=== PATIENT | male | born 1995 | race Caucasian/White ===

== ENCOUNTER 2021-12-09 14:39 | Emergency (ER) | payer OTHER, SELFPAY ==
--- NOTE | 2021-12-09 14:40 | ED.ABDPAIN ---
HPI - Abdominal Pain General Chief Complaint: Abdominal Pain Stated Complaint: Abdominal Pain,Diarrhea,Shortness of Breath Time Seen by Provider: 12/09/21 14:40 Source: patient Mode of arrival: ambulatory Limitations: no limitations History of Present Illness HPI narrative: Mr. Pearson is a 26-year-old male patient presenting to the clinic today with complaints abdominal pain, diarrhea, and shortness of breath x4 days. He reports the pain is in the upper mid abdomen and he is also had some heartburn symptoms for the past 2 days. He reports that his stool has been a mixture of soft and diarrhea. He denies any blood in stool. He denies any nausea or vomiting. He states he gets occasional intermittent shortness of breath when the pain is bad. Does have a cardiac history and is seeing cardiac provider-supposed to be getting echocardiogram done but has not done this yet. Reports history of 2 heart attacks. States his chest and arms feel tingly at times but not currently. Rates the midepigastric pain a 3-4 out of 10. Related Data Allergies Allergy/AdvReac Type Severity Reaction Status Date / Time No Known Allergies Allergy Verified 12/09/21 14:55 Review of Systems Review of Systems: Pertinent positives per HPI. Patient denies any fever, chills, rash, headache, visual changes, dizziness, cough, chest pain, palpitations, nausea, vomiting, constipation, or any urinary issues. PMFSH Comments At the time of my signature, I reviewed and agree with the nursing past medical, surgical, social, and family history. There is no relevant family history pertinent to the patient complaint. Exam Narrative: General: Well-developed, well nourished, in no apparent distress Head: Normocephalic, atraumatic Eyes: Pupils equally round and reactive to light bilaterally, EOM intact, sclera and conjunctive clear, no discharge, lids normal Ears: TMs intact and clear, ear canals clear, no drainage, grossly hearing normal. Nose: Nares patent, no discharge, no inflammation, no sinus tenderness. Mouth: Oral pharynx without lesions or masses, good dentition, MMM. Neck: Supple, trachea midline, no enlargement of anterior or posterior cervical nodes, no thyroid masses or goiter palpable. Cardio: Regular rate and rhythm, s1 and s2 normal, no murmur appreciated. Resp: Clear to auscultation bilaterally, no rhonchi, rales, wheezing or rubs Abdomen: Soft, pliable, mild tenderness to palpation over the mid epigastrium, bowel sounds present all 4 quadrants, no organomegaly, no CVAT tenderness Course Course Emergency Course: Portions of this record may have been created with voice recognition software. Level of Care: Express Care Visit Vital Signs Vital signs: Vital Signs Temperature 36.4 C 12/09/21 14:49 Pulse Rate 98 12/09/21 14:49 Respiratory Rate 18 12/09/21 14:49 Blood Pressure 140/88 12/09/21 14:49 Pulse Oximetry 100 12/09/21 14:49 Oxygen Delivery Room Air 12/09/21 14:49 Temperature 36.4 C 12/09/21 14:49 Pulse Rate 98 12/09/21 14:49 Respiratory Rate 18 12/09/21 14:49 Blood Pressure 140/88 12/09/21 14:49 Pulse Oximetry 100 12/09/21 14:49 Oxygen Delivery Room Air 12/09/21 14:49 Vital signs reviewed MDM - Abdominal Pain MDM Narrative Medical decision making narrative: At the time of visit patient is resting comfortably on the exam table. Maalox 30 mL and viscous lidocaine 15 mils given in the clinic and this upset the patient. 4 mg of Zofran was given for nausea. 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 He already has orders for echocardiogram and blood work that he plans to get done and he will follow-up with his PCP and licensed occupational therapist this week. I will trial him on a prescription of Protonix to see if this helps his symptoms. Red flag symptoms were reviewed with patient he voiced understanding of dischar
[2021-12-09 14:49] VITALS: BP 140/88; PULSE 98; RESP 18; TEMP 36.4; O2SAT 100
--- NOTE | 2021-12-09 15:09 | ECG_ITS ---
Measurements Intervals [place] Rate: 93 P: 78 [place]: 155 QRS: 52 QRSD: 106 T: 68 QT: 342 QTc: 427 Interpretive Statements SINUS RHYTHM MINOR RV CONDUCTION DELAY OTHERWISE NORMAL ECG NO PREVIOUS ECG AVAILABLE FOR COMPARISON Electronically Signed On 12-10-2021 8:00:19 CDT by Osmar Limon M.D.
[2021-12-09] MEDS: LIDOCAINE HCL 2% VISC SOLN 15 ML UDC PO (15:15)
[2021-12-09] MEDS: MAG HYDROX/AL HYDROX/SIMETH 30 ML UDC PO (15:15)
[2021-12-09] MEDS: ONDANSETRON HCL ODT 4 MG TABLET SUBLINGUAL (15:39)
== END 2021-12-09 15:56 | disposition home or self-care (01) ==
PROVIDERS: Emergency Provider Nurse Practitioner Family
DX: R10.13 Epigastric pain (principal); I25.2 Old myocardial infarction
CPT/HCPCS: 93005; 99213; A9270; G0463

== ENCOUNTER 2021-12-12 18:27 | Emergency (ER) | payer OTHER, SELFPAY ==
--- NOTE | ~2021-12-12 | XR_ITS ---
EXAMINATION: XR chest 2V Exam Date/Time: 12/12/2021 18:50 CDT HISTORY: short of breath Comparison: None available. RESULT: Lines, tubes, and devices: None. Lungs and pleura: Clear. Cardiomediastinal silhouette: Normal. Other: No acute osseous or upper abdominal finding. IMPRESSION: No acute cardiopulmonary process. Reviewed, dictated and finalized at location K.
[2021-12-12 18:37] VITALS: BP 134/88; PULSE 99; RESP 18; TEMP 36.4; O2SAT 100
--- NOTE | 2021-12-12 18:42 | ED.URI ---
HPI - URI/Sore Throat General Chief Complaint: Shortness of Breath/Dyspnea Stated Complaint: sob Time Seen by Provider: 12/12/21 18:50 Source: patient Mode of arrival: ambulatory Limitations: no limitations History of Present Illness HPI Narrative: 26-year-old male presented for complaint of shortness of breath. He endorses palpitations and shortness of breath with walking/activity since yesterday. He was seen at the [facility] on 12/09 for epigastric abdominal pain, given GI cocktail and Zofran, and started prescription PPI. He endorses worsening abdominal pain yesterday and right hand shaking last night. Currently denies abdominal pain, nausea, vomiting, diarrhea, chest pain, wheezing or cough. LBM last night, normal. Patient has history of tourette's, and his mother had SD age 30. 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 He denies personal cardiac history, however he states about one year ago he may have had 'a stroke or heart attack' but he did not seek ER evaluation due to fear of doctors. Related Data Home Medications Medication Instructions Recorded Confirmed No Home Medications 12/12/21 12/12/21 Allergies Allergy/AdvReac Type Severity Reaction Status Date / Time No Known Allergies Allergy Verified 12/12/21 18:47 Review of Systems Review of Systems: CONSTITUTIONAL: Denies body aches, fever, chills, or sweats. EYES: Denies visual changes, redness, or discharge. ENT: Denies rhinorrhea, congestion, sore throat, or otalgia. CARDIOVASCULAR:per HPI. RESPIRATORY: per HPI GASTROINTESTINAL: Denies abdominal pain, nausea, vomiting, or diarrhea. GENITOURINARY: Denies dysuria or hematuria. SKIN: Denies rash or wounds. MUSCULOSKELETAL: Denies back pain, joint pain, or myalgia. NEUROLOGIC: Denies headache, numbness, tingling, or weakness. All systems reviewed & are unremarkable except as noted in HPI and below PMFSH Comments At time of signature, I have reviewed and agree with nursing past medical, surgical, social and family history unless otherwise noted. Please see nursing chart for further information. There is no relevant family history pertinent to the presenting complaint Exam Narrative: GENERAL: Well-appearing EYES: EOMI. No redness or drainage. Conjunctivae normal. ENT: Mucous membranes pink and moist. No rhinorrhea. TMs normal bilaterally. Throat normal. Uvula midline. CHEST: No respiratory distress. Lungs clear and diminished throughout HEART: Regular rate and rhythm. No murmur appreciated. ABDOMEN: Soft, nontender, nondistended, normal active bowel sounds. EXTREMITIES: Normal range of motion. No edema. SKIN: Warm, dry, no rash. Capillary refill normal. Normal skin turgor. NEURO: Alert and oriented x3. Gait steady. PSYCH: appears anxious Course Course Emergency Course: Patient is aware of diagnosis, understands and agrees to treatment plan. Anticipatory guidance given. Patient agrees to follow-up as directed and is aware of reasons to seek care at the emergency department. Portions of this record may have been created with voice recognition software Level of Care: Express Care Visit Vital Signs Vital signs: Vital Signs Temperature 97.6 F 12/12/21 18:37 Pulse Rate 99 12/12/21 18:37 Respiratory Rate 18 12/12/21 18:37 Blood Pressure 134/88 12/12/21 18:37 Pulse Oximetry 100 12/12/21 18:37 Oxygen Delivery Room Air 12/12/21 18:37 Temperature 97.6 F 12/12/21 18:37 Pulse Rate 99 12/12/21 18:37 Respiratory Rate 18 12/12/21 18:37 Blood Pressure 134/88 12/12/21 18:37 Pulse Oximetry 100 12/12/21 18:37 Oxygen Delivery Room Air 12/12/21 18:37 MDM - URI/Sore Throat MDM Narrative Medical decision making narrative: Result of chest x-ray reviewed with patient. He is in stable condition, no respiratory distress. O2 sat 100% on room air. We discussed multiple etiologies including emergencies that require imm
== END 2021-12-12 19:48 | disposition home or self-care (01) ==
PROVIDERS: Emergency Provider Nurse Practitioner Family
DX: R06.02 Shortness of breath (principal)
CPT/HCPCS: 71046; 99213; G0463

== ENCOUNTER 2021-12-29 16:05 | Emergency (ER) | payer OTHER, SELFPAY ==
[2021-12-29 16:13] VITALS: BP 142/92; PULSE 124; RESP 18; TEMP 36.6; O2SAT 100
--- NOTE | 2021-12-29 16:22 | ED.URI ---
HPI - URI/Sore Throat General Chief Complaint: Upper Respiratory Infection Stated Complaint: Nausea,Body Chills Source: patient and RN notes reviewed Mode of arrival: ambulatory Limitations: no limitations History of Present Illness HPI Narrative: 26 y/o male presents for c/o sinus pressure, nausea, body aches, cold sweats, reports fever 103, and neck pain. Symptoms worsened since yesterday. Patient states that his neck pain is chronic, but more achy today. Denies radiating pain to arms or decreased ROM to neck. Patient has attempted home treatment with ibuprofen and Benadryl. Children recently tested positive for RSV. Denies n/v/d, sob or wheezing. Patient currently smokes a 1/2 pack of cigarettes per day, but has been working on cutting down. MD elicited complaint: cough Related Data Allergies Allergy/AdvReac Type Severity Reaction Status Date / Time pantoprazole AdvReac Mild Gastrointestinal Verified 12/29/21 16:26 Upset Review of Systems Review of Systems: CONSTITUTIONAL: Endorses malaise, chills, sweats, fever t-max 103 EYES: Denies visual changes, or discharge ENT: Reports congestion, frontal and maxillary sinus pain CARDIOVASCULAR: Denies chest pain, palpitations, edema RESPIRATORY: Reports post nasal drainage. Denies dyspnea GASTROINTESTINAL: Denies abdominal pain. Reports nausea but no vomiting MUSCULOSKELETAL: Endorses myalgia, neck pain Exam Narrative: GENERAL: Ill-appearing, nontoxic HEAD: Normocephalic EYES: PERRLA, conjunctivae clear ENT: Mucous membranes moist. TM pearly singletary with light reflex bilaterally; no tragal tenderness. Oropharynx erythematous without lesions or exudate, no drooling, no hoarseness, no trismus, uvula midline. NECK: Supple. No lymphadenopathy, no VPT or nuchal rigidity CHEST: Clear to auscultation, breath sounds equal. No wheezing, rhonchi, rales, or stridor. HEART: Tachycardic and Regular No murmur heard. SKIN: Warm, dry, no rash. NEURO: Alert and oriented x3. Course Course Emergency Course: Patient is aware of diagnosis, understands and agrees to treatment plan. Anticipatory guidance given. Patient agrees to follow-up as directed and is aware of reasons to seek care at the emergency department. Portions of this record may have been created with voice recognition software Level of Care: Express Care Visit Vital Signs Vital signs: Vital Signs Oxygen Delivery Room Air 12/29/21 16:08 Temperature 97.8 F 12/29/21 16:13 Pulse Rate 124 H 12/29/21 16:13 Respiratory Rate 18 12/29/21 16:13 Blood Pressure 142/92 H 12/29/21 16:13 Pulse Oximetry 100 12/29/21 16:13 Oxygen Delivery Room Air 12/29/21 16:13 reviewed MDM - URI/Sore Throat MDM Narrative Medical decision making narrative: Negative COVID and Flu results discussed with patient. Advised supportive measures and signs and symptoms to report to the ED. Patient is well-appearing and appropriate for outpatient treatment and follow up. 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 Differential Diagnosis Differential diagnosis: Likely upper respiratory infection, sinusitis and viral infection Lab Data Labs: Lab Results 12/29/21 Range/Units 16:45 POC SARS CoV-2 Ag Negative (Negative) Influenza A Screen Negative Reference Range: Negative Influenza B Screen Negative Reference Range: Negative Discharge Plan Discharge Clinical Impression: Upper respiratory infection Patient Disposition: Home, Self-Care Condition: Stable Instructions: Rhinosinusitis (ED) Additional Instructions: COVID and flu negative. You may repeat COVID test at home in 1-2 days. Continue with standard precautions. Recommend Flonase spray and Zyrtec (or Claritin/Claudia)
== END 2021-12-29 17:03 | disposition home or self-care (01) ==
PROVIDERS: Emergency Provider Nurse Practitioner Family
DX: J06.9 Acute upper respiratory infection, unspecified (principal); Z20.822 Contact with and (suspected) exposure to COVID-19
CPT/HCPCS: 87426; 87804; 99213; C9803; G0463

== ENCOUNTER 2022-01-05 15:44 | Outpatient (CLI) | payer OTHER, SELFPAY ==
[2022-01-05 16:03] LABS: Basophils Percent Auto 0.4 % (0.2-1.2); Eosinophils Absolute Auto 0.1 K/mm3 (0-0.3); Eosinophils Percent Auto 0.9 % (0-4.4); Hematocrit 42.5 % (42.0-52.0); Hemoglobin 14.4 g/dL (14.0-18.0); Immature Granulocyte Absolute 0.02 K/mm3 (0.00-0.031); Immature Granulocyte Percent A 0.3 % (0-0.5); Lymphocytes Absolute Auto 2.75 K/mm3 (0.9-3.2); Lymphocytes Percent Auto 35.6 % (18.3-44.2); Mean Corpuscular HGB Conc 33.9 g/dl (32-36); Mean Corpuscular Volume 88.5 fl (80-100); Mean Platelet Volume 9.3 fl (7.4-10.4); Monocytes Absolute Auto 0.6 K/mm3 (0.1-0.6); Monocytes Percent Auto 7.5 % (2.6-8.5); Neutrophils Absolute Auto 4.3 K/mm3 (1.3-6.7); Neutrophils Percent Auto 55.3 % (45.5-73.1); Platelet Count Result 291 k/mm3 (150-375); Red Cell Distribution Width 13.8 % (11.5-14.5); White Blood Count 7.7 K/mm3 (4.5-10.0)
[2022-01-05 17:03] LABS: Alanine Aminotransferase 57 U/L (6-50); Albumin Level 4.5 g/dL (3.5-5.1); Alkaline Phosphatase 105 U/L (38-126); Anion Gap 9 mmol/L (8-16); Aspartate Amino Transferase 36 U/L (17-59); Bilirubin,Total 0.4 mg/dL (0.2-1.3); Blood Urea Nitrogen 19 mg/dL (9-20); Calcium 8.8 mg/dL (8.4-10.2); Carbon Dioxide 26 mmol/L (22-30); Chloride 103 mmol/L (98-107); Estimated Glomerular Filt Rate > 60; Glucose 105 mg/dL (65-110); Sodium 138 mmol/L (137-145)
[2022-01-05 17:29] LABS: Free T4 Free Thyroxine 0.68 ng/mL (0.78-2.19)
== END 2022-01-05 15:45 | disposition home or self-care (01) ==
PROVIDERS: Visit Provider Specialist
DX: R00.2 Palpitations (principal); I10 Essential (primary) hypertension
CPT/HCPCS: 36415; 80053; 84439; 84443; 85025

== ENCOUNTER 2022-01-06 07:28 | Outpatient (CLI) | payer OTHER, SELFPAY ==
--- NOTE | 2022-01-06 | ECHO_ITS ---
Patient Info Name: Jasson Pearson Age: 26 years : 1995 Gender: Male Ht: 69 in Wt: 180 lbs BSA: 2.01 m2 HR: 84 bpm BP: 139 / 87 mmHg Heart Rhythm: Sinus Rhythm Technical Quality: Good Exam Date: 01/06/2022 8:05 AM Exam Location: [facility] Patient Status: Outpatient Admit Date: 01/06/2022 Staff Ordering Physician: Osmar Limon MD Electronic Gluer: Rayne Faustin RDCS Attending Provider: Osmar Limon MD Referring Physician: Braxton BROOKS; Exam Type: CA echo doppler color flow Study Info Indications R55 - Syncope and collapse R00.2 - Palpitations Complete two-dimensional, color flow and Doppler transthoracic echocardiogram is performed. Summary 1. Complete two-dimensional, color flow and Doppler transthoracic echocardiogram is performed. 2. Unremarkable 2D and Doppler echocardiogram. Left Ventricular Outflow Tract Name Value Normal LVOT 2D LVOT Diameter 2.0 cm LVOT Doppler LVOT Peak Gradient 4 mmHg LVOT Mean Gradient 3 mmHg LVOT VTI 22 cm LVOT VTI/AV VTI Ratio 1.0 LVOT Stroke Volume 69 ml LVOT CO 5.8 l/min LVOT CI 2.9 l/min/m2 Pulmonic Valve Name Value Normal RVOT Doppler RVOT Peak Gradient 2 mmHg PV Doppler PV Peak Gradient 4 mmHg Tricuspid Valve Name Value Normal TV Regurgitation Doppler TR Peak Velocity 192 cm/s TR Peak Gradient 15 mmHg Estimated PAP/RSVP RA Pressure 10 mmHg <=5 PA Systolic Pressure 25 mmHg <36 RV Systolic Pressure 25 mmHg <36 Aorta Name Value Normal Ascending Aorta Ao Root Diameter (MM) 2.9 cm Ao Root Diam Index (MM) 1.5 cm/m2 Aortic Valve Name Value Normal AV Doppler
== END 2022-01-06 07:29 | disposition home or self-care (01) ==
LOC: ANHCARD 07:30
PROVIDERS: Visit Provider Specialist
DX: R00.2 Palpitations (principal)
CPT/HCPCS: 93306

== ENCOUNTER 2022-01-19 22:06 | Emergency (ER) | payer BC, OTHER, SELFPAY ==
[2022-01-19 22:16] VITALS: BP 149/85; PULSE 101; RESP 20; TEMP 36.6; O2SAT 100
--- NOTE | 2022-01-19 23:53 | ED.EYEPROB ---
HPI - Eye Problem General Chief complaint: Eye Problems Stated complaint: bilateral eye pain Time Seen by Provider: 01/19/22 23:45 History of Present Illness HPI Narrative: Patient is a 26-year-old male here for evaluation of bilateral eye irritation and redness for the past 2 hours. Patient states that he was getting ready for bed when he noticed that his left eye was itchy and irritated, followed shortly by the right. Notes that his cat was on his face prior to symptom onset. No new medications. Patient took Benadryl prior to arrival with improvement of his symptoms although his right eye is still red, and notes a burning sensation under his eye. Also notes blurry vision bilaterally. He does not wear contact lenses or glasses. No pain with eye movement, fevers or chills, systemic symptoms. No involvement of mouth or nose. Related Data Allergies Allergy/AdvReac Type Severity Reaction Status Date / Time pantoprazole AdvReac Mild Gastrointestinal Verified 12/29/21 16:26 Upset Review of Systems Review of Systems: Gen: Denies fevers or chills Eyes: Reports bilateral eye irritation and redness. ENT: Denies congestion Respiratory: Denies shortness of breath or cough CV: Denies chest pain or palpitations GI: Denies abdominal pain nausea, emesis or diarrhea : denies burning, urgency, frequency or hematuria Musculoskeletal: Denies back pain or muscle pain Neuro: Denies numbness, tingling, weakness or focal weakness Skin: Denies rash Except as documented, all other systems reviewed and negative Exam Narrative: APPEARANCE: Well appearing, no pain in distress, well-nourished. Head: Normocephalic and atraumatic. EYES: Fluorescein exam reveals no area of uptake. Bobby sign negative. Full range of motion eyes without pain. No obvious swelling to eye. NOSE: No nasal drainage EARS: External ear normal in appearance THROAT: Oropharynx is clear. Mucous membranes are moist. NECK: Supple. No adenopathy, no masses. RESPIRATORY: Airway patent, respirations nonlabored. Clear to auscultation bilaterally, no rales, rhonchi, wheezing. CARDIOVASCULAR: Regular rate and rhythm without murmurs, rubs, or gallops. ABDOMINAL: Normoactive bowel sounds. Soft, nontender, nondistended. No rebound tenderness or guarding. MUSCULOSKELETAL: Extremities are warm and well-perfused. Moves all extremities well. No edema. NEURO: Normal speech. No focal neurologic deficits. SKIN: Small area of redness under left eye; non-tender to palpation; Nikolsky sign negative PSYCHIATRIC: Normal affect/mood. Course Vital Signs Vital signs: Vital Signs Temperature 97.9 F 01/19/22 22:16 Pulse Rate 101 H 01/19/22 22:16 Respiratory Rate 20 01/19/22 22:16 Blood Pressure 149/85 H 01/19/22 22:16 Pulse Oximetry 100 01/19/22 22:16 Oxygen Delivery Room Air 01/19/22 22:16 Temperature 97.9 F 01/19/22 22:16 Pulse Rate 101 H 01/19/22 22:16 Respiratory Rate 20 01/19/22 22:16 Blood Pressure 149/85 H 01/19/22 22:16 Pulse Oximetry 100 01/19/22 22:16 Oxygen Delivery Room Air 01/19/22 22:16 MDM - Eye Problem MDM Narrative Medical decision making narrative: 26 year old male here for evaluation of bilateral eye irritation and redness after his cat sat on his face. He took benadryl prior to arrival with improvement of his symptoms; and he was given pepcid and prednisone in the ED with near resolution. His eye exam is unremarkable; anh pen reads pressures of 10 on the R and 11 on the Left. Fluorescein stain shows no abrasion or globe rupture. He has no new medications, no systemic symptoms, and has a negative nikolsky sign; so doubt SJS. Bilateral nature of symptoms and full range of motion without pain makes orbital cellulitis unlikely. His visual acuity is 20/40 on the L, 20/30 on the R, 20/25 bilaterally. Likely allergic conjunctivitis to his cat; patient will be sent home with prednisone and to follow up with optho. He was given strict retur
[2022-01-20] MEDS: FAMOTIDINE 20 MG TABLET PO (00:06)
[2022-01-20] MEDS: predniSONE 20 MG TABLET 40 MG PO (00:06)
[2022-01-20] MEDS: FLUORESCEIN SOD 1 MG/STRIP EACH EYE (00:07)
[2022-01-20] MEDS: TETRACAINE HCL 0.5% OPHTH SOLN 4 ML BTL 1 DROP EACH EYE (00:08)
== END 2022-01-20 01:05 | disposition home or self-care (01) ==
PROVIDERS: Emergency Provider Emergency Medicine
DX: H10.13 Acute atopic conjunctivitis, bilateral (principal)
CPT/HCPCS: 99283; A9270; J7512

== ENCOUNTER 2022-02-15 23:04 | Emergency (ER) | payer BC, MEDICAID, SELFPAY ==
--- NOTE | ~2022-02-15 | CT_ITS ---
EXAMINATION: CT brain wo con DATE: 02/16/2022 00:24 INDICATION: Confusion. Right arm numbness. TECHNIQUE: Computed tomography (CT) of the head was performed without intravenous contrast. The mA wa s adjusted according to patient size. Iterative reconstruction technique was employed. The dose-lengt h product was 605.33 mGy-cm. COMPARISON: None FINDINGS: There is no intracranial hemorrhage, acute infarction, or abnormal intracranial mass lesion . The ventricles are normal in size. The paranasal sinuses are clear. The mastoid air cells are honey l. IMPRESSION: 1. Normal brain. Reviewed, dictated and finalized at location A. ER LOADER IMPRESSION: 1. Normal brain.
--- NOTE | ~2022-02-15 | CT_ITS ---
EXAMINATION: CT cervical spine wo con DATE: 02/16/2022 00:25 INDICATION: Right arm numbness TECHNIQUE: Computed tomography (CT) of the cervical spine was performed without intravenous contrast. The dose-length product (DLP) was 476.33 mGy-cm. Automated exposure control and iterative reconstruc tion technique were employed. COMPARISON: None FINDINGS: No fracture, dislocation, or subluxation. The vertebral body heights, alignment, and interv ertebral disc spaces are normal. The paravertebral soft tissues are unremarkable. The odontoid is int act. IMPRESSION: 1. No acute osseous abnormality. Reviewed, dictated and finalized at location A. TECHNICIAN
--- NOTE | 2022-02-15 23:10 | ECG_ITS ---
Measurements Intervals [place] Rate: 103 P: 77 NE: 143 QRS: 47 QRSD: 98 T: 56 QT: 327 QTc: 428 Interpretive Statements SINUS TACHYCARDIA ABNORMAL RHYTHM ECG COMPARED TO ECG 12/09/2021 15:05:28 SINUS TACHYCARDIA NOW PRESENT Electronically Signed On 02-16-2022 11:43:33 WEATHERIZATION FIELD TECHNICIAN by Valerie Ghosh M.D.
[2022-02-15 23:15] VITALS: BP 159/101; PULSE 108; RESP 20; TEMP 36.8; O2SAT 100
[2022-02-15 23:16] VITALS: BP 159/101; PULSE 108; RESP 13; O2SAT 100
[2022-02-15 23:28] LABS: Basophils Percent Auto 0.4 % (0.2-1.2); Eosinophils Absolute Auto 0.1 K/mm3 (0-0.3); Eosinophils Percent Auto 1.5 % (0-4.4); Hemoglobin 14.8 g/dL (14.0-18.0); Immature Granulocyte Absolute 0.01 K/mm3 (0.00-0.031); Immature Granulocyte Percent A 0.1 % (0-0.5); Lymphocytes Absolute Auto 2.96 K/mm3 (0.9-3.2); Mean Corpuscular HGB Conc 34.4 g/dl (32-36); Mean Corpuscular Hemoglobin 30.7 pg (26-34); Mean Corpuscular Volume 89.2 fl (80-100); Mean Platelet Volume 9.6 fl (7.4-10.4); Monocytes Absolute Auto 0.7 K/mm3 (0.1-0.6); Monocytes Percent Auto 10.8 % (2.6-8.5); Neutrophils Percent Auto 44.2 % (45.5-73.1); Platelet Count Result 268 k/mm3 (150-375); Red Blood Count 4.82 M/mm3 (4.6-6.20); Red Cell Distribution Width 13.5 % (11.5-14.5); White Blood Count 6.9 K/mm3 (4.5-10.0)
[2022-02-15 23:29] VITALS: PULSE 107
[2022-02-15 23:32] VITALS: BP 157/75; PULSE 107; RESP 16; O2SAT 100
[2022-02-15 23:47] VITALS: BP 125/96; PULSE 110; RESP 18; O2SAT 100
[2022-02-15 23:50] LABS: Alanine Aminotransferase 50 U/L (6-50); Albumin Level 4.8 g/dL (3.5-5.1); Alkaline Phosphatase 98 U/L (38-126); Anion Gap 7 mmol/L (8-16); Aspartate Amino Transferase 39 U/L (17-59); Bilirubin,Total 0.5 mg/dL (0.2-1.3); Blood Urea Nitrogen 28 mg/dL (9-20); Carbon Dioxide 28 mmol/L (22-30); Chloride 105 mmol/L (98-107); Estimated CRCL calculation 89 ml/min; Estimated Glomerular Filt Rate > 60; Glucose 88 mg/dL (65-110); Potassium 3.3 mmol/L (3.4-5.0); Sodium 140 mmol/L (137-145)
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
[2022-02-16] MEDS: SODIUM CHLORIDE 0.9% IV 1,000 ML 999 ML IV CONT (00:04)
[2022-02-16 00:31] VITALS: BP 123/88; PULSE 96; RESP 17; O2SAT 100
[2022-02-16 00:32] LABS: Ethanol < 10 mg/dL (<10)
--- NOTE | 2022-02-16 00:33 | PC.NURSE ---
Pt ambulated to bathroom to try and give urine sample. Pt unable to void at this time. Instructed pt to use his call light when he feels like he can go. Pt verbalized understanding.
[2022-02-16 00:46] VITALS: BP 135/85; PULSE 91; RESP 17; O2SAT 100
[2022-02-16 01:01] VITALS: BP 129/82; PULSE 92; RESP 14; O2SAT 100
[2022-02-16 01:04] LABS: Add Urine Microscopic? NO; Appearance Urine Clear (Clear); Bilirubin Urine Negative (Negative); Blood Urine Negative (Negative); Color Urine Light Yellow (Yellow); Glucose Urine UA Negative (Negative); Ketones Urine Negative (Negative); Leukocyte Esterase Ur Negative LEU/UL (Negative); Nitrate Urine Negative (Negative); Protein Urine Negative (Negative); Specific Grav Ur >= 1.030 (1.001-1.035); Urobilinogen Urine 0.2 mg/dL (<2.0); pH Urine 5.5 (5.0-9.0)
[2022-02-16 01:07] LABS: Mucus Urine Rare /lpf; RBC Urine 0-2 /hpf (0-2); Squamous Epithelial Cell Urine Rare /hpf (Few); WBC Urine 0-3 /hpf
[2022-02-16] MEDS: POTASSIUM CHLORIDE 20 MEQ PACKET (FOR LIQUID) 40 MEQ PO (01:14)
[2022-02-16 01:17] VITALS: BP 134/91; PULSE 102; RESP 21; O2SAT 100
[2022-02-16 01:20] LABS: Barbiturate Screen Urine Negative (Negative); Benzodiazepines Screen Urine Negative (Negative)
[2022-02-16 01:30] LABS: Cannabinoid Screen Urine Negative (Negative); Cocaine Screen Urine Negative (Negative); Methadone Screen Urine Negative (Negative); Opiate Screen Urine Negative (Negative); Phencyclidine Screen Urine Negative (Negative)
[2022-02-16 01:46] VITALS: BP 132/89; PULSE 89; RESP 20; O2SAT 100
[2022-02-16 02:20] LABS: Amphetamine Screen Urine Positive (Negative)
== END 2022-02-16 02:15 | disposition home or self-care (01) ==
PROVIDERS: Preventive Medicine Aerospace Medicine; Emergency Provider Nurse Practitioner Family
DX: M54.12 Radiculopathy, cervical region (principal); R42 Dizziness and giddiness; T37.5X5A Adverse effect of antiviral drugs, initial encounter; R00.0 Tachycardia, unspecified
CPT/HCPCS: 36415; 70450; 72125; 80053; 80307; 81003; 85025; 93005; 96360; 99284; A9270; J7030

== ENCOUNTER 2022-03-30 16:00 | Emergency (ER) | payer BC, MEDICAID, SELFPAY ==
--- NOTE | 2022-03-30 16:06 | ED.URI ---
HPI - URI/Sore Throat General Chief Complaint: Upper Respiratory Infection Stated Complaint: runny nose,chills Time Seen by Provider: 03/30/22 16:09 Source: patient, RN notes reviewed and old records reviewed Mode of arrival: ambulatory Limitations: no limitations History of Present Illness HPI Narrative: 27-year-old male presents to [facility] with complaints of not feeling well yesterday. Patient states at 10:00 a.m. he started feeling nauseous, dizzy, laid down and take a nap. Woke up this morning still not feeling great with a right nose. Reports that his kids are home with a virus denies any fevers. Reports hot flashes Related Data Home Medications Medication Instructions Recorded Confirmed No Home Medications 03/30/22 03/30/22 Allergies Allergy/AdvReac Type Severity Reaction Status Date / Time pantoprazole AdvReac Mild Gastrointestinal Verified 12/29/21 16:26 Upset Review of Systems Review of Systems: All systems reviewed & are unremarkable except as noted in HPI and below Constitutional: Constitutional: Reports as per HPI, Reports chills and Reports fatigue Eyes: Eyes: Reports no additional eye complaints ENT: Reports system reviewed and no additional complaints, except as documented Cardiovascular: Cardiovascular: Reports no additional cardiovascular complaints, Denies chest pain and Denies dyspnea Respiratory: Respiratory: Reports no additional respiratory complaints, Denies chest congestion, Denies cough and Denies dyspnea Gastrointestinal: Gastrointestinal: Reports as per HPI, Denies abdominal pain, Denies nausea and Denies vomiting Musculoskeletal: Musculoskeletal: Reports no additional musculoskeletal complaints Integumentary/Breasts: Skin/Breast: Reports system reviewed and no additional complaints, except as docu Neurologic: Reports system reviewed and no additional complaints, except as documented Psychiatric: Psychiatric: Reports no additional psychiatric complaints Allergic/Immunologic: Allergic/Immunologic: Reports no additional allergic/immunologic complaints PMFSH Comments At the time of my signature, I reviewed and agree with the nursing past medical, surgical, social, and family history. There is no relevant family history pertinent to the patient complaint. Exam Const: General: cooperative, healthy appearing, comfortable, no acute distress, well developed, alert and well nourished Nutritional Appearance: well nourished Orientation/consciousness: patient oriented x3 Limitations: no limitations HENMT: Head: normal to inspection Ears: hearing grossly normal bilaterally and external ears normal Face/Nose/Sinus: Normal external nose present, Normal nares present, Normal nasal mucous membranes and turbinates present and normal facial exam Face and sinus: normal facial exam Mouth: Yes Normal oral and palatal mucosa present, Yes lip normal and Yes moist mucous membranes Throat: posterior oropharynx normal and uvula midline Eyes: General: appearance normal, both eyes and all related structures Alignment and Position: alignment normal Periorbital: periorbital findings normal Conjunctivae: conjunctivae normal Pupils: Equal, round and reactive pupils present EOM: EOMs intact bilaterally Neck: Neck: normal visual inspection, full ROM, no lymphadenopathy and no meningeal signs Chest: Chest palpation & inspection: normal inspection of the chest Resp: Effort & Inspection: normal respiratory effort and able to speak in complete sentences Auscultation: clear to auscultation bilaterally, no crackles, no rales, no rhonchi and no wheezes Cardio: Rate: regular rate Rhythm: regular rhythm GI: GI Palp: Yes Soft to palpation and No Tenderness to palpation present (GI) Back/Spine/Pelvis: Cervical Spine: cervical ROM normal Thoracic/Lumbar Spine: No thoracic spinal tenderness Skin: General skin exam: normal color and no rashes or lesions noted Lesions: no lesions Rashes: no r
[2022-03-30 16:10] VITALS: BP 134/85; PULSE 102; RESP 20; TEMP 36.2; O2SAT 100
== END 2022-03-30 16:44 | disposition home or self-care (01) ==
PROVIDERS: Emergency Provider Nurse Practitioner
DX: B34.9 Viral infection, unspecified (principal); K21.9 Gastro-esophageal reflux disease without esophagitis
CPT/HCPCS: 87081; 87804; 87880; 99213; G0463

== ENCOUNTER 2022-04-11 18:07 | Emergency (ER) | payer BC, MEDICAID, SELFPAY ==
[2022-04-11 18:12] VITALS: BP 139/86; PULSE 102; RESP 16; TEMP 36.4; O2SAT 100
--- NOTE | 2022-04-11 18:13 | ED.URI ---
HPI - URI/Sore Throat General Chief Complaint: Upper Respiratory Infection Stated Complaint: Body Aches,Shortness of Breath,Congestion Time Seen by Provider: 04/11/22 18:13 Source: patient, RN notes reviewed and old records reviewed Mode of arrival: ambulatory Limitations: no limitations History of Present Illness HPI Narrative: 27-year-old male presents to the [facility] with complaints of body aches, congestion for the last 2-3 days. has been exposed to COVID Lost taste and smell 2 days ago. No treatment prior to arrival denies chest pain/ abdominal pain. Has not taken a temperature Related Data Home Medications Medication Instructions Recorded Confirmed No Home Medications 03/30/22 04/11/22 Allergies Allergy/AdvReac Type Severity Reaction Status Date / Time pantoprazole AdvReac Mild Gastrointestinal Verified 12/29/21 16:26 Upset Review of Systems Review of Systems: All systems reviewed & are unremarkable except as noted in HPI and below Constitutional: Constitutional: Reports no additional constitutional complaints Eyes: Eyes: Reports no additional eye complaints ENT: Reports as per HPI Cardiovascular: Cardiovascular: Reports no additional cardiovascular complaints, Denies chest pain and Denies dyspnea Respiratory: Respiratory: Reports no additional respiratory complaints, Denies chest congestion, Denies cough and Denies dyspnea Gastrointestinal: Gastrointestinal: Reports no additional gastrointestinal complaints, Denies abdominal pain, Denies nausea and Denies vomiting Musculoskeletal: Musculoskeletal: Reports no additional musculoskeletal complaints Integumentary/Breasts: Skin/Breast: Reports system reviewed and no additional complaints, except as docu Neurologic: Reports system reviewed and no additional complaints, except as documented Psychiatric: Psychiatric: Reports no additional psychiatric complaints Allergic/Immunologic: Allergic/Immunologic: Reports no additional allergic/immunologic complaints PMFSH Comments At the time of my signature, I reviewed and agree with the nursing past medical, surgical, social, and family history. There is no relevant family history pertinent to the patient complaint. Exam Const: General: cooperative, comfortable, no acute distress, well developed, alert, ill appearing acutely (mild) and well nourished Nutritional Appearance: well nourished Orientation/consciousness: patient oriented x3 Limitations: no limitations HENMT: Head: normal to inspection Ears: hearing grossly normal bilaterally and external ears normal Face/Nose/Sinus: Normal external nose present, Normal nares present, Normal nasal mucous membranes and turbinates present and normal facial exam Face and sinus: normal facial exam Mouth: Yes Normal oral and palatal mucosa present, Yes lip normal and Yes moist mucous membranes Throat: posterior oropharynx normal and uvula midline Eyes: General: appearance normal, both eyes and all related structures Alignment and Position: alignment normal Periorbital: periorbital findings normal Conjunctivae: conjunctivae normal Pupils: Equal, round and reactive pupils present EOM: EOMs intact bilaterally Neck: Neck: normal visual inspection, full ROM, no lymphadenopathy and no meningeal signs Chest: Chest palpation & inspection: normal inspection of the chest Resp: Effort & Inspection: normal respiratory effort and able to speak in complete sentences Auscultation: clear to auscultation bilaterally, no crackles, no rales, no rhonchi and no wheezes Cardio: Rate: regular rate Rhythm: regular rhythm Back/Spine/Pelvis: Cervical Spine: cervical ROM normal Thoracic/Lumbar Spine: No thoracic spinal tenderness Skin: General skin exam: normal color and no rashes or lesions noted Lesions: no lesions Rashes: no rashes Wounds: no wounds Neuro: General: patient oriented x3, gait normal, tone normal, moves all extremities and no meningeal signs Cranial ner
== END 2022-04-11 18:40 | disposition home or self-care (01) ==
PROVIDERS: Emergency Provider Nurse Practitioner
DX: U07.1 COVID-19 (principal)
CPT/HCPCS: 87081; 87426; 87804; 87880; 99213; C9803; G0463

== ENCOUNTER 2023-04-12 15:49 | Emergency (ER) | payer OTHER, SELFPAY ==
--- NOTE | ~2023-04-12 | XR_ITS ---
EXAMINATION: XR hand RT min 3V INDICATION: Right hand pain TECHNIQUE: Three views of the right hand are obtained. COMPARISON: 07/24/2017 FINDINGS: No fracture, dislocation, or subluxation. The bones, soft tissues, and joint spaces are nor mal. IMPRESSION: 1. No acute osseous abnormality. Reviewed, dictated and finalized at location L. [employer]
--- NOTE | 2023-04-12 16:02 | ED.UPPEXIN ---
HPI - Extremity Injury (Upper) General Chief Complaint: Extremity Injury, Upper Stated Complaint: rt hand injury Time Seen by Provider: 04/12/23 16:28 Source: patient, RN notes reviewed and old records reviewed Mode of arrival: ambulatory Limitations: no limitations History of Present Illness HPI narrative: 28-year-old male presents to the [facility] with pain and swelling over metacarpal 2 and 3, right hand. 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 States that he went to work and had some increased pain. Has a history of a fracture in that hand as well. Related Data Home Medications Medication Instructions Recorded Confirmed No Home Medications 03/30/22 04/12/23 Allergies Allergy/AdvReac Type Severity Reaction Status Date / Time pantoprazole AdvReac Mild Gastrointestinal Verified 04/12/23 16:28 Upset Review of Systems Review of Systems: All systems reviewed & are unremarkable except as noted in HPI and below Constitutional: Constitutional: Reports no additional constitutional complaints Eyes: Eyes: Reports no additional eye complaints ENT: Reports system reviewed and no additional complaints, except as documented Cardiovascular: Cardiovascular: Reports no additional cardiovascular complaints, Denies chest pain and Denies dyspnea Respiratory: Respiratory: Reports no additional respiratory complaints, Denies chest congestion, Denies cough and Denies dyspnea Gastrointestinal: Gastrointestinal: Reports no additional gastrointestinal complaints, Denies abdominal pain, Denies nausea and Denies vomiting Musculoskeletal: Musculoskeletal: Reports as per HPI Integumentary/Breasts: Skin/Breast: Reports system reviewed and no additional complaints, except as docu Neurologic: Reports system reviewed and no additional complaints, except as documented Psychiatric: Psychiatric: Reports no additional psychiatric complaints Allergic/Immunologic: Allergic/Immunologic: Reports no additional allergic/immunologic complaints PMFSH Comments At the time of my signature, I reviewed and agree with the nursing past medical, surgical, social, and family history. There is no relevant family history pertinent to the patient complaint. Exam Const: General: cooperative, healthy appearing, comfortable, no acute distress, well developed, alert and well nourished Nutritional Appearance: well nourished Orientation/consciousness: patient oriented x3 Limitations: no limitations HENMT: Head: normal to inspection Ears: hearing grossly normal bilaterally and external ears normal Face/Nose/Sinus: Normal external nose present, Normal nares present, Normal nasal mucous membranes and turbinates present, normal facial exam and face symmetric Face and sinus: normal facial exam and face symmetric Eyes: General: appearance normal, both eyes and all related structures Alignment and Position: alignment normal Periorbital: periorbital findings normal Pupils: Equal, round and reactive pupils present EOM: EOMs intact bilaterally Neck: Neck: normal visual inspection, full ROM, no lymphadenopathy and no meningeal signs Chest: Chest palpation & inspection: normal inspection of the chest Resp: Effort & Inspection: normal respiratory effort and able to speak in complete sentences Cardio: Rate: regular rate Rhythm: regular rhythm Back/Spine/Pelvis: Cervical Spine: cervical ROM normal Skin: General skin exam: normal color and no rashes or lesions noted Lesions: no lesions Rashes: no rashes Wounds: no wounds Neuro: General: patient oriented x3, gait normal, tone normal, moves all extremities and no meningeal signs Cranial nerves: Yes Equal, round and reactive pupils present Cognition (Neuro): normal cognition Speech: normal speech Gait exam (Neuro): Normal gait present Extrem: General: normal to inspection, full ROM, capillary refill normal and normal gait Right upper extremity: Extremity
[2023-04-12 16:18] VITALS: BP 122/71; PULSE 90; RESP 18; TEMP 36.9; O2SAT 98
== END 2023-04-12 16:48 | disposition home or self-care (01) ==
PROVIDERS: Emergency Provider Nurse Practitioner
DX: S60.221A Contusion of right hand, initial encounter (principal); W01.0XXA Fall on same level from slipping, tripping and stumbling without subsequent striking against object, initial encounter
CPT/HCPCS: 73130; 99213; G0463

== ENCOUNTER 2023-05-21 16:50 | Emergency (ER) | payer OTHER, SELFPAY ==
--- NOTE | ~2023-05-21 | XR_ITS ---
EXAMINATION: [id number] Exam Date/Time: 05/21/2023 17:15 CDT HISTORY: right lateral rib pain x 1 day, cough Comparison: None available. RESULT: Lines, tubes, and devices: None. Lungs and pleura: Clear. Cardiothymic silhouette: Normal. Other: No acute osseous or upper abdominal finding. IMPRESSION: No acute cardiopulmonary process. No acute osseous finding in the right ribs. Reviewed, dictated and finalized at location K.
--- NOTE | 2023-05-21 16:55 | ED.URI ---
HPI - URI/Sore Throat General Chief Complaint: Upper Respiratory Infection Stated Complaint: Sore Throat,Cough,Right Side Pain Time Seen by Provider: 05/21/23 16:59 Source: patient Mode of arrival: ambulatory Limitations: no limitations History of Present Illness HPI Narrative: Marv is a 28-year-old male patient presenting to the clinic today with complaints of sore throat, productive cough,and right-sided rib pain. He reports symptoms started on Sunday with cough, runny nose, sore throat. Reports yesterday he coughs so hard that he possibly pulled a muscle in his right flank. MD elicited complaint: sore throat and nasal congestion Related Data Allergies Allergy/AdvReac Type Severity Reaction Status Date / Time pantoprazole AdvReac Mild Gastrointestinal Verified 05/21/23 16:51 Upset Review of Systems Review of Systems: Pertinent positives per HPI. Patient denies any fever, chills, rash, headache, visual changes, dizziness, shortness of breath, chest pain, palpitations, nausea, vomiting, diarrhea, constipation, abdominal pain, or any urinary issues. PMFSH Comments At the time of my signature, I reviewed and agree with the nursing past medical, surgical, social, and family history. There is no relevant family history pertinent to the patient complaint. Exam Narrative: General: Well-developed, well nourished, in no apparent distress Head: Normocephalic, atraumatic Eyes: Pupils equally round and reactive to light bilaterally, EOM intact, sclera and conjunctive clear, no discharge, lids normal Ears: TMs intact and clear, ear canals clear, no drainage, grossly hearing normal. Nose: Nares patent, clear nasal discharge, no inflammation, no sinus tenderness. Mouth: Oral pharynx red without lesions or masses, good dentition, MMM. Neck: Supple, trachea midline, no enlargement of anterior or posterior cervical nodes, no thyroid masses or goiter palpable. Chest wall: Tenderness to palpation over the right posterior/lateral rib, no bruising or swelling noted, even rise and fall of the chest wall with respirations Cardio: Regular rate and rhythm, s1 and s2 normal, no murmur appreciated. Resp: Diminished breath sounds, no rhonchi, rales, wheezing or rubs Course Course Emergency Course: Portions of this record may have been created with voice recognition software. Level of Care: Express Care Visit Vital Signs Vital signs: Vital signs reviewed MDM - URI/Sore Throat MDM Narrative Medical decision making narrative: At the time of visit patient is resting comfortably on the exam table. Patient appears to be nontoxic. Labs: COVID, strep, and influenza testing was performed and negative in the clinic today. Diagnostics: X-ray of the chest and ribs are negative for any acute cardiopulmonary process or acute rib fracture. Plan: I suspect patient has URI/viral syndrome/pharyngitis with right rib pain due to cough. Prescription for benzonatate was sent to the pharmacy. Supportive measures were discussed with the patient and they voiced understanding discharge instructions and agrees to treatment plan. Return precautions reviewed Differential Diagnosis Differential diagnosis: Likely upper respiratory infection, otitis media, sinusitis, viral infection, bronchitis, influenza, pharyngitis and other (COVID) Discharge Plan Discharge Clinical Impression: Viral infection, Rib pain on right side Upper respiratory infection Qualifiers: URI type: unspecified URI Qualified Code(s): J06.9 - Acute upper respiratory infection, unspecified Pharyngitis Qualifiers: Pharyngitis/tonsillitis etiology: unspecified etiology Qualified Code(s): J02.9 - Acute pharyngitis, unspecified Patient Disposition: Home, Self-Care Condition: Stable Instructions: Antibiotic Form, Pharyngitis (ED), Upper Respiratory Infection (ED), Viral Syndrome (ED) Additional Instructions: X-rays negative for any acute cardiopulmonary proc
[2023-05-21 16:58] VITALS: BP 143/79; PULSE 84; RESP 18; TEMP 36.8; O2SAT 99
== END 2023-05-21 17:36 | disposition home or self-care (01) ==
PROVIDERS: Emergency Provider Nurse Practitioner Family
DX: B34.9 Viral infection, unspecified (principal); R07.81 Pleurodynia; J06.9 Acute upper respiratory infection, unspecified; J02.9 Acute pharyngitis, unspecified; Z20.822 Contact with and (suspected) exposure to COVID-19; Z86.16 Personal history of COVID-19
CPT/HCPCS: 71101; 87081; 87426; 87804; 87880; 99213; G0463

== ENCOUNTER 2023-08-15 16:27 | Emergency (ER) | payer OTHER, SELFPAY ==
--- NOTE | ~2023-08-15 | XR_ITS ---
XR finger 3rd LT min 2V Ordering provider: Nael Ley APRN History: . finger injury/laceration over LT 3rd dip joint . Comparison: None. FINDINGS: BONES: No acute fracture or dislocation. JOINT SPACES: Normal. SOFT TISSUES: Radiopaque small foreign bodies seen in the skin anteriorly opposite the distal interph alangeal joint. IMPRESSION: No acute osseous abnormality. Radiopaque small foreign bodies seen in the skin anteriorly opposite the distal interphalangeal joint . Reviewed, dictated and finalized at location A. IMPRESSION: No acute osseous abnormality. Radiopaque small foreign bodies seen in the skin anteriorly opposite the distal interphalangeal joint.
--- NOTE | 2023-08-15 16:32 | ED.EXTPRO ---
HPI - Extremity Problem General Chief complaint: Extremity Problem,Nontraumatic Stated complaint: middle lt finger injury Time Seen by Provider: 08/15/23 16:30 Source: patient Mode of arrival: ambulatory Limitations: no limitations History of Present Illness HPI Narrative: Jasson is a 28-year-old male patient presenting to the clinic today with complaints of left middle finger injury that occurred today. He states he put his finger in a drum at work and this cut his finger open. Is having some mild discomfort with flexion and extension over the left 3rd D IP joint. Skin is avulsed/flap back from the top and bottom of the D IP joint. He reports tetanus is unknown. Is concerned about infection and the machine drum was very dirty. Related Data Allergies Allergy/AdvReac Type Severity Reaction Status Date / Time pantoprazole AdvReac Mild Gastrointestinal Verified 08/15/23 16:40 Upset Review of Systems Review of Systems: Pertinent positives per HPI. Patient denies any fever, chills, rash, headache, visual changes, dizziness, cough, runny nose, sore throat, shortness of breath, chest pain, palpitations, nausea, vomiting, diarrhea, constipation, abdominal pain, or any urinary issues. PMFSH Comments At the time of my signature, I reviewed and agree with the nursing past medical, surgical, social, and family history. There is no relevant family history pertinent to the patient complaint. Exam Narrative: General: Well-developed, well nourished, in no apparent distress Head: Normocephalic, atraumatic. Cardio: Regular rate and rhythm, s1 and s2 normal, no murmur appreciated. Resp: Clear to auscultation bilaterally, no rhonchi, rales, wheezing or rubs. Musculoskeletal: No deformity, non-tender to palpation, grossly normal range of motion, muscle strength strong and equal, peripheral pulse strong, no edema, no cyanosis, normal gait and station Course Course Emergency Course: Portions of this record may have been created with voice recognition software. Level of Care: Express Care Visit Vital Signs Vital signs: Vital Signs Temperature 37.1 C 08/15/23 16:40 Pulse Rate 91 08/15/23 16:40 Respiratory Rate 18 08/15/23 16:40 Blood Pressure 123/79 08/15/23 16:40 Pulse Oximetry 97 08/15/23 16:40 Oxygen Delivery Room Air 08/15/23 16:40 Temperature 37.1 C 08/15/23 16:40 Pulse Rate 91 08/15/23 16:40 Respiratory Rate 18 08/15/23 16:40 Blood Pressure 123/79 08/15/23 16:40 Pulse Oximetry 97 08/15/23 16:40 Oxygen Delivery Room Air 08/15/23 16:40 Vital signs reviewed Procedures Laceration Laceration 1: Date: 08/15/23 Site: hand (left middle finger) Side (If applicable): left Size (cm): 2.5 Description: flap and irregular Depth: simple, single layer Local Anesthetic: lidocaine 1% Amount of anesthesia used (mL): 4 (digital block) Pre-repair: wound explored, irrigated and irrigated extensively ====== Skin Level ====== Skin layer closed with: nylon Size (cm): 5-0 Number of sutures: 7 Technique: simple, interrupted ====== Subcutaneous Layer ====== ====== Muscle Layer ====== ====== Tendon Layer ====== Dressing: Verbal consent obtained for laceration repair. Risk and benefits explained and patient voiced understanding. Area was cleansed with wound wash and a 27 gauge needle was then used to instill (4) ml of 1% lidocaine without epi into the distal MIP joint to create a digital block. Patient has 1 laceration measuring 1.5 cm to the volar aspect of the left 3rd finger near the D IP joint, he also has a 1 cm laceration to the dorsal aspect of the left 3rd finger over the D IP joint. Area was prepped and draped using sterile technique. A 5-0 suture on a p needle was used to place (7) total 4 to the volar laceration and 3 to the dorsal laceration interrupted sutures bringing
[2023-08-15 16:40] VITALS: BP 123/79; PULSE 91; RESP 18; TEMP 37.1; O2SAT 97
[2023-08-15] MEDS: TETANUS,DIPHTHERIA,AC PERTUSSIS ADULT (0.5 ML) BOOSTRIX IM (16:57)
[2023-08-15] MEDS: LIDOCAINE HCL 1% LOCAL INJ 2 ML AMPUL 4 ML INFILTRATE (17:02)
== END 2023-08-15 18:06 | disposition home or self-care (01) ==
LOC: EXPTROY 16:34
PROVIDERS: Emergency Provider Nurse Practitioner Family
DX: S61.213A Laceration without foreign body of left middle finger without damage to nail, initial encounter (principal); W45.8XXA Other foreign body or object entering through skin, initial encounter; Y99.0 Civilian activity done for income or pay; Z23 Encounter for immunization
CPT/HCPCS: 12001; 73140; 90471; 90715; 99213; G0463

== ENCOUNTER 2023-08-25 11:56 | Emergency (ER) | payer OTHER, SELFPAY ==
--- NOTE | 2023-08-25 12:07 | ED.GENADULT ---
HPI - General Adult General Chief complaint: Wound/Laceration Stated complaint: stitch removal Time Seen by Provider: 08/25/23 12:07 Source: patient Mode of arrival: ambulatory Limitations: no limitations History of Present Illness HPI narrative: 28-year-old male patient presents to the [facility] with request to remove sutures from the left middle finger. Patient states he had him put in about 10 days ago after suffering an injury from work. Patient denies any complications denies any issues with range of motion. Patient states that 1 suture did fall out the other day. Related Data Home Medications Medication Instructions Recorded Confirmed No Home Medications 08/25/23 08/25/23 Allergies Allergy/AdvReac Type Severity Reaction Status Date / Time pantoprazole AdvReac Mild Gastrointestinal Verified 08/25/23 12:19 Upset Review of Systems Review of Systems: CONSTITUTIONAL: Denies fever, chills, or sweats. EYES: Denies visual changes, redness, or discharge. ENT: Denies rhinorrhea, congestion, sore throat, or otalgia. CARDIOVASCULAR: Denies chest pain, palpitations, or edema. RESPIRATORY: Denies cough or dyspnea. GASTROINTESTINAL: Denies abdominal pain, nausea, vomiting, or diarrhea. GENITOURINARY: Denies dysuria or hematuria. SKIN: Denies rash or itching. patient has 6 sutures intact to the left middle finger 3 on the dorsal side of the finger and 3 of the supine side of the finger. No surrounding erythema, swelling or evidence of infection at this time. The wound does appear well approximated and closed. MUSCULOSKELETAL: Denies back pain, joint pain, or myalgia. NEUROLOGIC: Denies headache, numbness, or weakness. PSYCHIATRIC: Denies anxiety or depression. PMFSH Comments At the time of my signature I agree with nursing past medical history, surgical, social, and family history. There is no relevant family history pertinent to the presenting complaint. Exam Narrative: GENERAL: Well-appearing, well-nourished, and in no acute distress. HEAD: Normocephalic, atraumatic. EYES: PERRLA and EOMI. ENT: Nares clear, no rhinorrhea or epistaxis. Mucous membranes moist. NECK: Supple. No lymphadenopathy CHEST: Clear to auscultation. No respiratory distress. HEART: Regular rate and rhythm. No murmur heard. Normal peripheral pulses. ABDOMEN: Soft, nontender, nondistended, normal active bowel sounds. EXTREMITIES: Normal range of motion. No edema. SKIN: Warm, dry, no rash. NEURO: No focal deficits. Alert and oriented x3. Course Course Level of Care: Express Care Visit Vital Signs Vital signs: Vital Signs Temperature 36.6 C 08/25/23 12:20 Pulse Rate 65 08/25/23 12:20 Respiratory Rate 18 08/25/23 12:20 Blood Pressure 113/77 08/25/23 12:20 Pulse Oximetry 98 08/25/23 12:20 Oxygen Delivery Room Air 08/25/23 12:20 Temperature 36.6 C 08/25/23 12:20 Pulse Rate 65 08/25/23 12:20 Respiratory Rate 18 08/25/23 12:20 Blood Pressure 113/77 08/25/23 12:20 Pulse Oximetry 98 08/25/23 12:20 Oxygen Delivery Room Air 08/25/23 12:20 Vital signs reviewed. Medical Decision Making MDM Narrative Medical decision making narrative: Sutures room removed from the finger, antibiotic ointment applied and Band-Aid applied. Encouraged patient to continue to keep the wound clean with soap water and apply antibiotic ointment cover with Band-Aid as it continues to heal. Patient verbalized understanding denies any other questions or concerns at this time. Differential Diagnosis Differential Diagnosis: Differential diagnosis: Simple, intermediate, or complex laceration. Vital Signs Vital Signs: Vital Signs Temperature 36.6 C 08/25/23 12:20 Pulse Rate 65 08/25/23 12:20 Respiratory Rate 18 08/25/23 12:20 Blood Pressure 113/77 08/25/23 12:20 Pulse Oximetry 98 08/25/23 12:20 Oxygen Delivery Room Air 08/25/23 12:20 Temperature 36.6 C 08/25/23 12:20 P
[2023-08-25 12:20] VITALS: BP 113/77; PULSE 65; RESP 18; TEMP 36.6; O2SAT 98
== END 2023-08-25 12:40 | disposition home or self-care (01) ==
PROVIDERS: Emergency Provider Nurse Practitioner Family
DX: S61.213D Laceration without foreign body of left middle finger without damage to nail, subsequent encounter (principal); X58.XXXD Exposure to other specified factors, subsequent encounter; Z86.16 Personal history of COVID-19
CPT/HCPCS: 99211; G0463

== ENCOUNTER 2024-03-27 11:27 | Emergency (ER) | payer BC, SELFPAY ==
[2024-03-27 11:37] VITALS: BP 133/77; PULSE 100; RESP 18; TEMP 36.4; O2SAT 99
[2024-03-27 12:10] LABS: EDCOVIDSCREEN Negative (Negative); EDINFLUASCREEN Negative (Negative); EDINFLUBSCREEN Negative (Negative); EDSTREPNEGPOS1 Negative (Negative)
--- NOTE | 2024-03-27 12:21 | ED.URI ---
HPI - URI/Sore Throat General Chief Complaint: Upper Respiratory Infection Stated Complaint: Sore Throat Time Seen by Provider: 03/27/24 11:45 Source: patient Mode of arrival: ambulatory Limitations: no limitations History of Present Illness HPI Narrative: 28-year-old male presents with complaint of cough, congestion, fatigue, fever, body aches, really bad sore throat . Denies nausea vomiting diarrhea. Taking [id number] medications to treat symptoms. Symptoms for 3 days. All systems reviewed and negative except as noted above. Related Data Allergies Allergy/AdvReac Type Severity Reaction Status Date / Time pantoprazole AdvReac Mild Gastrointestinal Verified 03/27/24 11:39 Upset Review of Systems Review of Systems: CONSTITUTIONAL: reports fever, chills, or sweats. EYES: Denies visual changes, redness, or discharge. ENT: Reports rhinorrhea, congestion, sore throat. Denies otalgia. CARDIOVASCULAR: Denies chest pain, palpitations, or edema. RESPIRATORY: reports cough. Denies dyspnea. GASTROINTESTINAL: Denies abdominal pain, nausea, vomiting, or diarrhea. GENITOURINARY: Denies dysuria or hematuria. SKIN: Denies rash or itching. MUSCULOSKELETAL: Denies back pain, joint pain, or myalgia. NEUROLOGIC: Denies headache, numbness, or weakness. PSYCHIATRIC: Denies anxiety or depression. All other systems reviewed are negative, except as documented in HPI. PMFSH Comments At time of signature, agree with nursing past medical, surgical, social and family history. There is no relevant family history pertinent to the presenting complaint. Exam Narrative: GENERAL: This is a well-nourished, well-developed patient, Ill-appearing but no acute distress HEAD: normocephalic, atraumatic. EYES: PERRL. Sclera clear/white. Vision is grossly intact. EARS: External ears normal, auditory canals clear and without drainage, TMs normal without perforation. Hearing grossly intact. NOSE: External nose normal with clear nasal drainage, mild erythema to bilateral nares THROAT: Mucous membranes moist, erythematous with swelling. No exudates. Tonsils 1+ bilaterally. NECK: Neck supple, non-tender without lymphadenopathy, masses or thyromegaly. CARDIOVASCULAR: Regular rate and rhythm without murmurs, gallops, or rubs. RESPIRATORY: Clear to auscultation. Breath sounds equal bilaterally. No wheezes, rales, or rhonchi. SKIN: warm, Dry, intact with no suspicious lesions or rash, good texture and turgor. NEURO: awake, alert, and oriented to person, place and time. There were no obvious focal neurologic abnormalities. EXTREMITIES: No joint tenderness, effusion, or edema noted. Course Course Level of Care: Express Care Visit Vital Signs Vital signs: Vital Signs Temperature 36.4 C 03/27/24 11:37 Pulse Rate 100 03/27/24 11:37 Respiratory Rate 18 03/27/24 11:37 Blood Pressure 133/77 03/27/24 11:37 Pulse Oximetry 99 03/27/24 11:37 Oxygen Delivery Room Air 03/27/24 11:37 Temperature 36.4 C 03/27/24 11:37 Pulse Rate 100 03/27/24 11:37 Respiratory Rate 18 03/27/24 11:37 Blood Pressure 133/77 03/27/24 11:37 Pulse Oximetry 99 03/27/24 11:37 Oxygen Delivery Room Air 03/27/24 11:37 reviewed MDM - URI/Sore Throat MDM Narrative Medical decision making narrative: negative influenza a, COVID and strep. Will treat patient for strep throat due to patient's symptoms and exam findings. Patient agrees with plan of care. Patient is alert, nontoxic. Patient is aware of diagnosis, understands and agrees to treatment plan. Anticipatory guidance given. Patient agrees to follow-up as directed and is aware of reasons to seek care at the emergency department. Portions of this record may have been created with voice recognition software Lab Data Labs: Lab Results 03/27/24 Range/Units 12:09 POC Influenza A Ag Negative (Negative) POC Influenza B Ag Negative (Negative) POC SARS CoV-2 Ag Negative (Negative) POC Grp A Strep Screen Negative (Negative) Discharge Plan Discharge Clinical Impression: Acute pharyngitis Qualifiers: Pharyngitis/tonsillitis etiology: unspecified etiology Qualified Code(s): J02.9 - Acute pharyngitis, unspecified Patient Disposition: Home, Self-Care Condition: Stable Instructions: Antibiotic Form, Pharyngitis (ED) Additional Instructions: Your COVID, influenza and strep test was negative today. Due to her symptoms and exam findings I am prescribing an antibiotic to treat for strep throat. take medications as prescribed. Continue taking Tylenol or ibuprofen every 6-8 hours as needed for pain and fever. Drink plenty of water and rest. Follow-up with your doctor if symptoms are not improving. Patient Language: Faroese Prescriptions: New benzonatate 200 mg capsule 200 mg PO TID PRN (Reason: cough) Qty: 20 0RF amoxicillin 875 mg tablet 875 mg PO Q12H 10 Days Qty: 20 0RF methylprednisolone [Medrol (Jai)] 4 mg tablets,dose pack See Rx Instructions PO .COMPLEX Qty: 21 0RF Rx Instructions: orally per package directions Follow-up/Referrals: UNKNOWN,DOCTOR [Primary Care Provider] - Stand Alone Forms: Work/School Release IP Time of Disposition: 12:07
--- OUTSIDE RECORDS SUMMARY | 2024-03-28 04:36 | XMS_ITS | Clinical Summary ---
Author Organization [facility] Address [address] [place] [address] Care Team Providers Care Shiftman Name Role Phone Unavailable Primary Care Provider Unavailabl e Source Comments [facility],non-owned Affiliates and Associated Physician Practices is amultiple site organization consisting of ambulatory clinics and hospital sitesin [place], [place], [place] and [place]. This disclosure is being madepursuant to the Care Everywhere program and may not contain all information available regarding this patient. Last updated 17.[facility] Allergies No known active allergies Medications Be aware that medications may not be up to date on this document. Always verify current medications with the patient. No known medications Social History Tobacco Use Types Packs/Day Years Used Date Smoking Tobacco: Every Day Cigarettes Smokeless Tobacco: Current Alcohol Use Standard Drinks/Week Comments Yes 0 (1 standard drink = 0.6 oz pur e alcohol) I had 5 shots today Sex and Gender Information Value Date Recorded Sex Assigned at Not on file Gender Identity Not on file Sexual Orientation Not on file Last Filed Vital Signs Vital Sign Reading Time Taken Comments Blood Pressure 118/82 10/03/2017 2:30 AM CDT Pulse 96 10/03/2017 2:30 AM CDT Temperature 36.8 ??C (98.3 ??F) 10/02/2017 11:28 PM C DT Respiratory Rate 17 10/03/2017 2:30 AM CDT Oxygen Saturation 97% 10/03/2017 2:00 AM CDT Inhaled Oxygen Concentration - - Weight 77.1 kg (170 lb) 10/02/2017 11:28 PM CDT Height 172.7 cm (5' 8 ) 10/02/2017 11:28 PM CDT Body Mass Index 25.85 10/02/2017 11:28 PM CDT Plan of Treatment Health Maintenance Due Date Last Done Comments HIV SCREENING 2008 HEPATITIS C SCREENING 03/26/2011 DTAP/TDAP/TD VACCINES (1 - Tdap) 2012 HEPATITIS B VACCINE (1 of 3 - 19+ 3-dose series) 2012 PNEUMOCOCCAL VACCINE (1 of 2 - PCV) 2012 COVID-19 VACCINE (1 - 2023-2 5 season) 2023 INFLUENZA VACCINE (#1) 2023 DEPRESSION SCREENING 03/05/2024 ZOSTER VACCINE (1 of 2) 2043 HIB VACCINE Aged Out No longer eligi ble based on patient's age to complete this topic HPV VACCINE Aged Out No longer eligi ble based on patient's age to complete this topic MENINGOCOCCAL (Group B) VACCINE Aged Out No longer eligible based on patient's age to complete this topic MENINGOCOCCAL VACCINE Aged Out No charlene evelio eligible based on patient's age to complete this topic
--- OUTSIDE RECORDS SUMMARY | 2024-03-28 04:36 | XMS_ITS | Clinical Summary ---
Author Organization [facility] Address [address] [place] [address] Care Team Providers Care Speedboat Driver Name Role Phone No, Physician Primary Care Provider [phone] Allergies No known active allergies Medications No known medications Active Problems Problem Noted Date Diagnosed Date Palpitation 10/12/2021 Near syncope 10/12/2021 Exertional dyspnea 10/12/2021 Family History Medical History Relation Name Comments Heart attack Mother Heart disease Mother Relation Name Status Comments Mother Social History Tobacco Use Types Packs/Day Years Used Date Smoking Tobacco: Every Day Personal Safety Answer Date Recorded Getting School Help Needed Not on file 05/05 Sex and Gender Information Value Date Recorded Sex Assigned at Not on file Legal Sex Male 10:07 AM CDT Gender Identity Not on file Sexual Orientation Not on file Obstetrics History Last Filed Vital Signs Vital Sign Reading Time Taken Comments Blood Pressure 150/110 10/12/2021 12:58 PM CDT Pulse 122 10/12/2021 12:58 PM CDT Temperature - - Respiratory Rate - - Oxygen Saturation 98% 10/12/2021 12:58 PM CDT Inhaled Oxygen Concentration - - Weight 77.3 kg (170 lb 4.9 oz) 10/12/2021 12:58 PM CDT Height 175.3 cm (5' 9 ) 10/12/2021 12:58 PM CDT Body Mass Index 25.15 10/12/2021 12:58 PM CDT Plan of Treatment Health Maintenance Due Date Last Done Comments Depression Screening 1993 Hepatitis C Screening 1993 Pneumococcal vaccine <65 (1 of 2 - PCV) 1999 Varicella Vaccines (1 of 2 - 13+ 2-dose series) 2006 Regular Well Visit/Exam 18-64 2011 DTaP/Tdap/Td Vaccine (6 - Td or Tdap) 06/24/2017 06/25/2007, 1995, 1993, Additional history exists Covid-19 Vaccine (2023- season) 2023 03/26/2021, 02/08/2021 Influenza Vaccine (#1) 2023 HPV Vaccines Aged Out No longer eligi ble based on patient's age to complete this topic [place] [address] [place] [address] Care Teams Speedboat Driver Relationship Specialty Start Date End Date No, Physician PCP - General 10/12/21
--- OUTSIDE RECORDS SUMMARY | 2024-03-28 04:36 | XMS_ITS | Referral Summary ---
Author Organization [facility] Address [address] [place] [address] Care Team Providers Care Physiognomist Name Role Phone Unavailable Primary Care Provider Unavailabl e Source Comments [facility],non-owned Affiliates and Associated Physician Practices is amultiple site organization consisting of ambulatory clinics and hospital sitesin [place], [place], [place] and [place]. This disclosure is being madepursuant to the Care Everywhere program and may not contain all information available regarding this patient. Last updated 17.[facility] Allergies No known active allergies Medications Be [...] 10/02/2017 11:28 PM CDT Plan of Treatment Not on file
--- OUTSIDE RECORDS SUMMARY | 2024-03-28 04:36 | XMS_ITS | Clinical Summary ---
Author Organization [facility] Address [address] [place] [address]. [place] [address] [place] [address] Care Team Providers Care Lead Atg Developer Name Role Phone Yesica Mcclure NP Primary Care Provider [phone] Allergies Active Allergy Reactions Criticality Noted Date Comments Valacyclovir GI Upset Medium 05/04/2022 Medications No known medications Active Problems Problem Noted Date Diagnosed Date Overweight (BMI 25.0-29.9) 05/04/2022 Cigarette smoker 05/04/2022 Cervical radiculopathy 05/04/2022 Numbness and tingling 05/04/2022 Immunizations Name Administration Dates Next Due Tdap (Adacel) 05/04/2022 Family History Medical History Relation Comments Pancreatic cancer Father Breast Cancer Mother CHF Mother COPD Mother Heart Attack Mother Relation Status Comments Father Mother Social History Tobacco Use Types Packs/Day Years Used Date Smoking Tobacco: Every Day Cigarettes 1 17 Passive Smoke Exposure: Current Smokeless Tobacco: Never Tobacco Cessation:Ready to Q uit: Yes; Counseling Given: Yes Alcohol Use Standard Drinks/Week Comments Not Currently 0 (1 standard drink = 0.6 oz pure alcohol) hx of heavy alcohol use, quit drinking PHQ-2 Answer Date Recorded Patient Health Questionnaire-2 Score 0 05/04/2022 Sex and Gender Information Value Date Recorded Sex Assigned at Not on file Legal Sex Male 3:[address] Gender Identity Not on file Sexual Orientation Not on file Last Filed Vital Signs Vital Sign Reading Time Taken Comments Blood Pressure 118/80 05/04/2022 3:[address] [employer] Pulse 110 05/04/2022 3:[address] [employer] Temperature 37.3 ??C (99.2 ??F) 05/04/2022 3:43 PM CS T Respiratory Rate 22 05/04/2022 3:[address] [employer] Oxygen Saturation 98% 05/04/2022 3:[address] [employer] Inhaled Oxygen Concentration - - Weight 81.9 kg (180 lb 9.6 oz) 05/04/2022 3:[address] [facility] Height 174 cm (5' 8.5 ) 05/04/2022 3:[address] [facility] Body Mass Index 27.06 05/04/2022 3:[address] Plan of Treatment Health Maintenance Due Date Last Done Comments Pneumococcal Vaccine: Pediatrics (0 to 5 Years) and At-Risk Patients (6 to 64 Years) (1 of 2 - PCV) 1999 Hepatitis C 2011 Hepatitis B Vaccines (1 of 3 - 19+ 3-dose series) 2012 Annual Physical 05/05/2023 05/04/2022 PHQ-2 (Physician Edgar) 05/05/2023 05/04/2022 COVID-19 Vaccine (3 - 2023-2 5 season) 2023 03/26/2021, 02/08/2021 Influenza Adult (#1) 2023 DTaP, Tdap and Td Vaccines ( 2 - Td or Tdap) 05/04/2032 05/04/2022 HPV Vaccines Aged Out No longer eligi ble based on patient's age to complete this topic Meningococcal B Vaccine Aged Out No l onger eligible based on patient's age to complete this topic Meningococcal Vaccine Aged Out No charlene evelio eligible based on patient's age to complete this topic RSV Immunizations Under 20 Months Aged Out No longer eligible b ased on patient's age to complete this topic Insurance [facility] Care Teams Lead Atg Developer Relationship Specialty Start Date End Date Yesica Mcclure NP [address] [address] PCP - General NURSE PRACTITIONER 04/20/22
--- OUTSIDE RECORDS SUMMARY | 2024-03-28 04:36 | XMS_ITS | Patient Health Summary ---
Author Organization [facility] [employer] Address [address] [place] [address] Care Team Providers Care Water Quality Specialist Name Role Phone Unavailable Primary Care Provider Unavailabl e Note from [facility],non-owned Affiliates and Associated Physician Practices is amultiple site organization consisting of ambulatory clinics and hospital sitesin [place], [place], [place] and [place]. This disclosure is being madepursuant to the Care Everywhere program and may not contain all information available regarding this patient. Last updated 17.[facility] [place] Allergies No known active allergies Medications Be [...] Mass Index 25.85 10/02/2017 11:28 PM CDT Procedures * CARDIAC EKG ORDER(Performed 10/04/2017) * URINE DRUG SCREEN IMMUNOASSAY(Performed 10/02/2017) * URINALYSIS REFLEX MICROSCOPIC REFLEX CULTURE(Performed 10/02/2017) * LIPASE BLOOD(Performed 10/02/2017) * ALCOHOL ETHYL BLOOD(Performed 10/02/2017) * CBC W AUTO DIFFERENTIAL(Performed 10/02/2017) * COMPREHENSIVE METABOLIC PANEL(Performed 10/02/2017) * EKG 12-LEAD(Performed 10/02/2017) Performed for Acute alcoholic intoxication without complication (HCC) Results * CARDIAC EKG ORDER (10/04/2017 9:16 PM CDT) Narrative 10/04/2017 9:16 PM CDT Ordered by an unspecified provider. Scanned Document CARDIAC SERVICES ORD ERABLES * URINALYSIS REFLEX MICROSCOPIC REFLEX CULTURE (10/02/2017 11:38 PM CDT) Color UA Straw Straw, Yellow 10/02/2017 11:45 PM T [facility] Clarity UA Clear Clear 10/02/2017 11:45 PM T [facility] Glucose UA Negative Negative 10/02/2017 11:45 PM T [facility] Bilirubin UA Negative Negative 10/02/2017 11:45 PM T [facility] Ketone UA Negative Negative 10/02/2017 11:45 PM [facility] Specific [place] UA 1.012 1.005 - 1.030 10/02/2017 11:45 PM T [facility] Blood UA Negative Negative 10/02/2017 11:45 PM [facility] pH UA 5.0 5.0 - 8.0 pH 10/02/2017 11:45 PM [facility] Protein UA Negative Negative 10/02/2017 11:45 PM T [facility] Urobilinogen UA Negative Negative mg/dL 10/02/2017 11:45 PM [facility] Nitrite UA Negative Negative 10/02/2017 11:45 PM [facility] Leukocyte UA Negative Negative 10/02/2017 11:45 PM [facility] Urine Microscopy Urine microscopy not indicated 10/02/2017 11:45 PM [facility] Reflex Status Culture not indicated 10/02/2017 11:45 PM [facility] Urine URINE SPECIMEN OBTAINED BY CLEAN CATCH PROCEDURE / Unknown Collection / Unknown 10/02/2017 11:38 PM CDT 10/02/2017 11:41 PM CDT [facility] - 10/02/2017 11:45 PM CDT Will Nicole MD LAB - URINALYSIS OR DERABLES [facility] [address] [place] [address] * DRUG SCREEN TOX URINE PANEL (10/02/2017 11:38 PM CDT) [facility] Amphetamines Screen Urine Not Detected Not Detected 10/02/2017 11:56 PM CDT [facility] Barbiturates Screen Urine Not Detected Not Detected 10/02/2017 11:56 PM T [facility] Benzodiazepines Screen Urine Not Detected Not Detected 10/02/2017 11:56 PM T [facility] Cannabinoids Screen Urine Not Detected Not Detected 10/02/2017 11:56 PM T [facility] Cocaine Screen Urine Not Detected Not Detected 10/02/2017 11:56 PM T [facility] Methadone Screen Urine Not Detected Not Detected 10/02/2017 11:56 PM T [facility] Opiate Screen Urine Not Detected Not Detected 10/02/2017 11:56 PM T [facility] Phencyclidine Screen Urine Not Detected Not Detected 10/02/2017 11:56 PM T [facility] Urine URINE / Unknown Collection / Unknown 10/02/2017 11:38 PM CDT 10/02/2017 11:41 PM CDT [facility] - 10/02/2017 11:56 PM CDT This drug screen is designed for MEDICAL purposes only. It is not to be used for legal purposes, including but not limited to worker's comp, police investigations, occupational issues, child custody, etc. ??Any positive result is only presumptive and must be confirmed with a separate confirmatory test ordered by the physician. Drug Screening Test Cutoff Values: AMPHETAMINES ?1000 ng/mL BARBITURATES ? 200 ng/mL BENZODIAZEPINES ??200 ng/mL CANNABINOIDS(THC) 50 ng/mL COCAINE ?300 ng/mL METHADONE ?300 ng/mL OPIATES ?300 ng/mL PHENCYCLIDINE(PCP)25 ng/mL Will Nicole MD LAB - URINE PSYCHOLOGICAL ASSISTANT RY ORDERABLES [facility] [address] [address] * (ABNORMAL) CBC W AUTO DIFFERENTIAL (10/02/2017 11:25 PM CDT) WBC 13.7(H) 4.4 - 10.7 x10E9/L 10/02/2017 11:33 PM CDT [facility] WBC Corrected x10E9/L 10/02/2017 11:33 PM CDT [facility] RBC 4.95 3.80 - 5.40 x10E12/L 10/02/2017 11:33 PM CDT [facility] Hemoglobin 15.0 12.0 - 17.6 gm/dL 10/02/2017 11:33 PM CDT [facility] Hematocrit 42.2 35.2 - 51.7 % 10/02/2017 11:33 PM CDT [facility] MCV 85.3 80.7 - 98.3 fl 10/02/2017 11:33 PM CDT [facility] MCH 30.3 26.7 - 34.0 pg 10/02/2017 11:33 PM CDT [facility] MCHC 35.5 30.8 - 35.9 gm/dL 10/02/2017 11:33 PM CDT [facility] Platelet Count 271 153 - 416 x10E9/L 10/02/2017 11:33 PM CDT [facility] RDW-CV 13.1 12.1 - 14.9 % 10/02/2017 11:33 PM CDT [facility] MPV 9.8 9.4 - 12.9 fl 10/02/2017 11:33 PM CDT [facility] Neutrophils % 68.9 44.0 - 73.0 % 10/02/2017 11:33 PM CDT [facility] Lymphocytes % 25.2 20.0 - 43.0 % 10/02/2017 11:33 PM CDT [facility] Monocytes % 5.3 5.0 - 13.0 % 10/02/2017 11:33 PM CDT [facility] Eosinophils % 0.2 0.0 - 6.0 % 10/02/2017 11:33 PM CDT [facility] Basophils % 0.2 0.0 - 2.0 % 10/02/2017 11:33 PM CDT [facility] Immature Granulocytes 0.2 0 - 1 % 10/02/2017 11:33 PM CDT [facility] Neutrophil Absolute 9.40(H) 2.01 - 7.14 x10E9/L 10/02/2017 11:33 PM CDT [facility] Lymphocytes Absolute 3.44 1.07 - 3.94 x10E9/L 10/02/2017 11:33 PM T [facility] Monocytes Absolute 0.73 0.26 - 1.07 x10E9/L 10/02/2017 11:33 PM CDT [facility] Eosinophils Absolute 0.03 0 - 0.47 x10E9/L 10/02/2017 11:33 PM CDT [facility] Basophils Absolute 0.03 0 - 0.08 x10E9/L 10/02/2017 11:33 PM T [facility] Immature Granulocytes Absolute 0.03 0.00 - 0.06 x10E9/L 10/02/2017 11:33 PM T [facility] nRBC Auto 0 /100 WBC 10/02/2017 11:33 PM [facility] Blood BLOOD SPECIMEN / Unknown Venipuncture / Unknown 10/02/2017 11:25 PM CDT 10/02/2017 11:31 PM CDT Will Nicole MD LAB - HEMATOLOGY OR DERABLES [facility] [address] [address] * (ABNORMAL) COMPREHENSIVE METABOLIC PANEL (10/02/2017 11:25 PM CDT) [facility] Glucose 106 74 - 106 mg/dL 10/02/2017 11:52 PM CDT [facility] Sodium 143 136 - 145 mmol/L 10/02/2017 11:52 PM T [facility] Potassium 4.5 3.5 - 5.1 mmol/L 10/02/2017 11:52 PM CDT [facility] Chloride 109(H) 98 - 107 mmol/L 10/02/2017 11:52 PM CDT [facility] CO2 22 22 - 31 mmol/L 10/02/2017 11:52 PM CDT [facility] Calcium 9.0 8.5 - 10.1 mg/dL 10/02/2017 11:52 PM [facility] Anion Gap 12 8 - 16 mmol/L 10/02/2017 11:52 PM CDT [facility] BUN 15 7 - 21 mg/dL 10/02/2017 11:52 PM [facility] Creatinine 1.13 0.50 - 1.30 mg/dL 10/02/2017 11:52 PM [facility] Alkaline Phosphatase 107 38 - 126 U/L 10/02/2017 11:52 PM [facility] ALT 62(H) 13 - 61 U/L 10/02/2017 11:52 PM CDT [facility] AST 33 5 - 40 U/L 10/02/2017 11:52 PM [facility] Protein Total 8.3(H) 6.4 - 8.2 gm/dL 10/02/2017 11:52 PM [facility] Albumin 4.4 3.4 - 5.0 gm/dL 10/02/2017 11:52 PM T [facility] Bilirubin Total 0.2 0.2 - 1.0 mg/dL 10/02/2017 11:52 PM [facility] eGFR by MDRD >60 >60 mL/min/1.7 3m2 10/02/2017 11:52 PM [facility] eGFR by MDRD >60 >60 mL/min/1.7 3m2 10/02/2017 11:52 PM [facility] Blood BLOOD SPECIMEN / Unknown Venipuncture / Unknown 10/02/2017 11:25 PM CDT 10/02/2017 11:31 PM CDT Will Nicole MD LAB - CHEMISTRY ORD ERABLES [facility] [address] [place] [address] * LIPASE BLOOD (10/02/2017 11:25 PM CDT) Lipase 88 73 - 393 U/L 10/02/2017 11:52 PM CDT [facility] Blood BLOOD SPECIMEN / Unknown Venipuncture / Unknown 10/02/2017 11:25 PM CDT 10/02/2017 11:31 PM CDT Will Nicole MD LAB - CHEMISTRY ORD ERABLES Performing Organization Address [facility]/ZIP Co de Phone Number [facility] [address] [place] [address] * (ABNORMAL) ALCOHOL ETHYL BLOOD (10/02/2017 11:25 PM CDT) Ethanol 265(HH) <10 mg/dL 10/02/2017 11:54 PM CDT [facility] Ethanol Calculated 0.265(HH) <0.100 gm/dL 10/02/2017 11:54 PM CDT [facility] Blood BLOOD SPECIMEN / Unknown Venipuncture / Unknown 10/02/2017 11:25 PM CDT 10/02/2017 11:31 PM CDT Narrative [facility] - 10/02/2017 11:54 PM CDT Non Legal Serum Alcohol Will Nicole MD LAB - CHEMISTRY ORD ERABLES Performing Organization Address [facility] de Phone Number [facility] [address] [place] [address] * EKG 12-LEAD (10/02/2017 11:19 PM CDT) Ventricular Rate 119 BPM [facility] Atrial Rate 119 BPM [facility] P-R Interval 136 ms [facility] QRS Duration ms 90 ms [facility] Q-T Interval ms 312 ms [facility] QTC Calculation (Bezet) 438 ms SCH MUSE Calculated P [place] 58 degrees SCHC MUSE Calculated R [place] 59 degrees SCH MUSE Calculated T [place] 51 degrees [facility] Interpretation EKG Sinus tachycardia WITH POOR EKG BASELINE Otherwise normal ECG No previous ECGs available Confirmed by MD MANPREET, JULIO Rahman (3) on 10/04/2017 7:53:56 AM [facility] 10/02/2017 11:1 9 PM CDT 10/04/2017 7:53 AM CDT Will Nicole MD ECG ORDERABLES [facility]
--- OUTSIDE RECORDS SUMMARY | 2024-03-28 04:36 | XMS_ITS | Referral Summary ---
Author Organization [facility] Address [address] [place] [id number] Care Team Providers Care Certified Drug Counselor Name Role Phone No, Physician Primary Care Provider [phone] Allergies No known active allergies Medications No known medications Active Problems Problem Noted Date Diagnosed Date Palpitation 10/12/2021 Near syncope 10/12/2021 Exertional dyspnea 10/12/2021 Social History Tobacco Use Types Packs/Day Years [...] 10/12/2021 12:58 PM CDT Plan of Treatment Not on file [place] [address] [place] [address] Care Teams Certified Drug Counselor Relationship Specialty Start Date End Date No, Physician PCP - General 10/12/21
== END 2024-03-27 12:13 | disposition home or self-care (01) ==
PROVIDERS: Emergency Provider Nurse Practitioner Family
DX: J02.9 Acute pharyngitis, unspecified (principal); Z20.822 Contact with and (suspected) exposure to COVID-19; K21.9 Gastro-esophageal reflux disease without esophagitis; Z86.16 Personal history of COVID-19
CPT/HCPCS: 87081; 87426; 87804; 87880; 99213; G0463

== ENCOUNTER 2024-03-31 14:12 | Emergency (ER) | payer BC, SELFPAY ==
[2024-03-31 14:45] VITALS: BP 140/87; PULSE 69; RESP 18; TEMP 36.8; O2SAT 100
--- OUTSIDE RECORDS SUMMARY | 2024-03-31 15:18 | XMS_ITS | Patient Health Summary ---
Author Organization [facility] [employer] Address [address] [facility] [place] [address] Care Team Providers Care Maintenance Custodian Name Role Phone Unavailable Primary Care Provider Unavailabl e Note from [facility] [employer] [facility],non-owned Affiliates and Associated Physician Practices is amultiple site organization consisting of ambulatory clinics and hospital sitesin [place], [place], [place] and [place]. This disclosure is being madepursuant to the Care Everywhere program and may not contain all information available regarding this patient. Last updated 17.[facility] [employer] Allergies No known active allergies Medications Be [...] Straw Straw, Yellow 10/02/2017 11:45 PM T [facility] Clarity UA Clear Clear 10/02/2017 11:45 PM T [facility] Glucose UA Negative Negative 10/02/2017 11:45 PM T [facility] Bilirubin UA Negative Negative 10/02/2017 11:45 PM T [facility] Ketone UA Negative Negative 10/02/2017 11:45 PM [facility] Specific [place] UA 1.012 1.005 - 1.030 10/02/2017 11:45 PM T [facility] Blood UA Negative Negative 10/02/2017 11:45 PM [facility] pH UA 5.0 5.0 - 8.0 pH 10/02/2017 11:45 PM [facility] Protein UA Negative Negative 10/02/2017 11:45 PM T [facility] Urobilinogen UA Negative Negative mg/dL 10/02/2017 11:45 PM [facility] Nitrite UA Negative Negative 10/02/2017 11:45 PM [facility] Leukocyte UA Negative Negative 10/02/2017 11:45 PM [facility] Urine Microscopy Urine microscopy not indicated 10/02/2017 11:45 PM [facility] Reflex Status Culture not indicated 10/02/2017 11:45 PM [facility] Urine URINE SPECIMEN OBTAINED BY CLEAN CATCH PROCEDURE / Unknown Collection / Unknown 10/02/2017 11:38 PM CDT 10/02/2017 11:41 PM CDT [facility] - 10/02/2017 11:45 PM CDT Will Nicole MD LAB - URINALYSIS OR DERABLES [facility] [address] [place] [address] * DRUG SCREEN TOX URINE PANEL (10/02/2017 11:38 PM CDT) [facility] Amphetamines Screen Urine Not Detected Not Detected 10/02/2017 11:56 PM CDT [facility] Barbiturates Screen Urine Not Detected Not Detected 10/02/2017 11:56 PM T [facility] Benzodiazepines Screen Urine Not Detected Not Detected 10/02/2017 11:56 PM T [facility] Cannabinoids Screen Urine Not Detected Not Detected 10/02/2017 11:56 PM T [facility] Cocaine Screen Urine Not Detected Not Detected 10/02/2017 11:56 PM T [facility] Methadone Screen Urine Not Detected Not Detected 10/02/2017 11:56 PM T [facility] Opiate Screen Urine Not Detected Not Detected 10/02/2017 11:56 PM T [facility] Phencyclidine Screen Urine Not Detected Not Detected 10/02/2017 11:56 PM T [facility] Urine URINE / Unknown Collection / Unknown 10/02/2017 11:38 PM CDT 10/02/2017 11:41 PM CDT [facility] - 10/02/2017 11:56 PM [...] ng/mL Will Nicole MD LAB - URINE INTERNET MARKETING CONSULTANT RY ORDERABLES [facility] [address] [address] * (ABNORMAL) CBC W AUTO DIFFERENTIAL (10/02/2017 11:25 PM CDT) WBC 13.7(H) 4.4 - 10.7 x10E9/L 10/02/2017 11:33 PM CDT [facility] WBC Corrected x10E9/L 10/02/2017 11:33 PM CDT [facility] RBC 4.95 3.80 - 5.40 x10E12/L 10/02/2017 11:33 PM CDT [facility] Hemoglobin 15.0 12.0 - 17.6 gm/dL 10/02/2017 11:33 PM CDT [facility] Hematocrit 42.2 35.2 - 51.7 % 10/02/2017 11:33 PM CDT [facility] MCV 85.3 80.7 - 98.3 fl 10/02/2017 11:33 PM CDT [facility] MCH 30.3 26.7 - 34.0 pg 10/02/2017 11:33 PM CDT [facility] MCHC 35.5 30.8 - 35.9 gm/dL 10/02/2017 11:33 PM CDT [facility] Platelet Count 271 153 - 416 x10E9/L 10/02/2017 11:33 PM CDT [facility] RDW-CV 13.1 12.1 - 14.9 % 10/02/2017 11:33 PM CDT [facility] MPV 9.8 9.4 - 12.9 fl 10/02/2017 11:33 PM CDT [facility] Neutrophils % 68.9 44.0 - 73.0 % 10/02/2017 11:33 PM CDT [facility] Lymphocytes % 25.2 20.0 - 43.0 % 10/02/2017 11:33 PM CDT [facility] Monocytes % 5.3 5.0 - 13.0 % 10/02/2017 11:33 PM CDT [facility] Eosinophils % 0.2 0.0 - 6.0 % 10/02/2017 11:33 PM CDT [facility] Basophils % 0.2 0.0 - 2.0 % 10/02/2017 11:33 PM CDT [facility] Immature Granulocytes 0.2 0 - 1 % 10/02/2017 11:33 PM CDT [facility] Neutrophil Absolute 9.40(H) 2.01 - 7.14 x10E9/L 10/02/2017 11:33 PM CDT [facility] Lymphocytes Absolute 3.44 1.07 - 3.94 x10E9/L 10/02/2017 11:33 PM T [facility] Monocytes Absolute 0.73 0.26 - 1.07 x10E9/L 10/02/2017 11:33 PM CDT [facility] Eosinophils Absolute 0.03 0 - 0.47 x10E9/L 10/02/2017 11:33 PM CDT [facility] Basophils Absolute 0.03 0 - 0.08 x10E9/L 10/02/2017 11:33 PM T [facility] Immature Granulocytes Absolute 0.03 0.00 - 0.06 x10E9/L 10/02/2017 11:33 PM T [facility] nRBC Auto 0 /100 WBC 10/02/2017 11:33 PM [facility] Blood BLOOD SPECIMEN / Unknown Venipuncture / Unknown 10/02/2017 11:25 PM CDT 10/02/2017 11:31 PM CDT Will Nicole MD LAB - HEMATOLOGY OR DERABLES [facility] [address] [address] * (ABNORMAL) COMPREHENSIVE METABOLIC PANEL (10/02/2017 11:25 PM CDT) [facility] Glucose 106 74 - 106 mg/dL 10/02/2017 11:52 PM CDT [facility] Sodium 143 136 - 145 mmol/L 10/02/2017 11:52 PM T [facility] Potassium 4.5 3.5 - 5.1 mmol/L 10/02/2017 11:52 PM CDT [facility] Chloride 109(H) 98 - 107 mmol/L 10/02/2017 11:52 PM CDT [facility] CO2 22 22 - 31 mmol/L 10/02/2017 11:52 PM CDT [facility] Calcium 9.0 8.5 - 10.1 mg/dL 10/02/2017 11:52 PM [facility] Anion Gap 12 8 - 16 mmol/L 10/02/2017 11:52 PM CDT [facility] BUN 15 7 - 21 mg/dL 10/02/2017 11:52 PM [facility] Creatinine 1.13 0.50 - 1.30 mg/dL 10/02/2017 11:52 PM [facility] Alkaline Phosphatase 107 38 - 126 U/L 10/02/2017 11:52 PM [facility] ALT 62(H) 13 - 61 U/L 10/02/2017 11:52 PM CDT [facility] AST 33 5 - 40 U/L 10/02/2017 11:52 PM [facility] Protein Total 8.3(H) 6.4 - 8.2 gm/dL 10/02/2017 11:52 PM [facility] Albumin 4.4 3.4 - 5.0 gm/dL 10/02/2017 11:52 PM T [facility] Bilirubin Total 0.2 0.2 - 1.0 mg/dL 10/02/2017 11:52 PM [facility] eGFR by MDRD >60 >60 mL/min/1.7 3m2 10/02/2017 11:52 PM [facility] eGFR by MDRD >60 >60 mL/min/1.7 3m2 10/02/2017 11:52 PM [facility] Blood BLOOD SPECIMEN / Unknown Venipuncture / Unknown 10/02/2017 11:25 PM CDT 10/02/2017 11:31 PM CDT Will Nicole MD LAB - CHEMISTRY ORD ERABLES [facility] [address] [place] [address] * LIPASE BLOOD (10/02/2017 11:25 PM CDT) Lipase 88 73 - 393 U/L 10/02/2017 11:52 PM CDT [facility] Blood BLOOD SPECIMEN / Unknown Venipuncture / Unknown 10/02/2017 11:25 PM CDT 10/02/2017 11:31 PM CDT Will Nicole MD LAB - CHEMISTRY ORD ERABLES Performing Organization Address [facility]/ZIP Co de Phone Number [facility] [address] [place] [address] * (ABNORMAL) ALCOHOL ETHYL BLOOD (10/02/2017 11:25 PM CDT) Ethanol 265(HH) <10 mg/dL 10/02/2017 11:54 PM CDT [facility] Ethanol Calculated 0.265(HH) <0.100 gm/dL 10/02/2017 11:54 PM CDT [facility] Blood BLOOD SPECIMEN / Unknown Venipuncture / Unknown 10/02/2017 11:25 PM CDT 10/02/2017 11:31 PM CDT Narrative [facility] - 10/02/2017 11:54 PM CDT Non Legal Serum Alcohol Will Nicole MD LAB - CHEMISTRY ORD ERABLES Performing Organization Address [facility] de Phone Number [facility] [address] [place] [address] * EKG 12-LEAD (10/02/2017 11:19 PM CDT) Ventricular Rate 119 BPM [facility] Atrial Rate 119 BPM [facility] P-R Interval 136 ms [facility] QRS Duration ms 90 ms [facility] Q-T Interval ms 312 ms [facility] QTC Calculation (Bezet) 438 ms SCH MUSE Calculated P [place] 58 degrees SCHC MUSE Calculated R [place] 59 degrees SCH MUSE Calculated T [place] 51 degrees [facility] Interpretation EKG Sinus tachycardia WITH POOR EKG BASELINE Otherwise normal ECG No previous ECGs available Confirmed by MD MANPREET, JULIO Rahman (3) on 10/04/2017 7:53:56 AM [facility] 10/02/2017 11:1 9 PM CDT 10/04/2017 7:53 AM CDT Will Nicole MD ECG ORDERABLES [facility]
--- OUTSIDE RECORDS SUMMARY | 2024-03-31 15:18 | XMS_ITS | Clinical Summary ---
Author Organization [facility] Address [address] [place] [address]. [place] [address] [place] [address] Care Team Providers Care Blueprint Maker Name Role Phone Yesica Mcclure NP Primary Care Provider [phone] Allergies Active Allergy Reactions Criticality Noted Date [...] on file Legal Sex Male 3:22 PM HUMANITIES DEPARTMENT CHAIR Gender Identity Not on file Sexual Orientation Not on file Last Filed Vital Signs Vital Sign Reading Time Taken Comments Blood Pressure 118/80 05/04/2022 3:43 PM HUMANITIES DEPARTMENT CHAIR Pulse 110 05/04/2022 3:43 PM HUM[employer]ITIES DEPARTMENT CHAIR Temperature 37.3 ??C (99.2 ??F) 05/04/2022 3:43 PM CS T Respiratory Rate 22 05/04/2022 3:43 PM HUM[employer]ITIES DEPARTMENT CHAIR Oxygen Saturation 98% 05/04/2022 3:43 PM HUMANITIES DEPARTMENT CHAIR Inhaled Oxygen Concentration - - Weight 81.9 kg (180 lb 9.6 oz) 05/04/2022 3:43 P M [employer] DE[employer]MENT CHAIR Height 174 cm (5' 8.5 ) 05/04/2022 3:43 PM HUMANITIES DEPARTMENT CHAIR Body Mass Index 27.06 05/04/2022 3:43 PM HUMANITIES DEPARTMENT CHAIR Plan of Treatment Health Maintenance Due Date Last Done Comments Pneumococcal Vaccine: Pediatrics (0 to 5 Years) and At-Risk Patients (6 to 64 Years) (1 of 2 - PCV) 1999 Hepatitis C 2011 Hepatitis B Vaccines (1 of 3 - 19+ 3-dose series) 2012 Annual Physical 05/05/2023 05/04/2022 PHQ-2 (Physician Exline) 05/05/2023 05/04/2022 COVID-19 Vaccine (3 - 2023-2 [...] patient's age to complete this topic Insurance [facility] Care Teams Blueprint Maker Relationship Specialty Start Date End Date Yesica Mcclure NP [address] [id number] PCP - General NURSE PRACTITIONER 04/20/22
--- OUTSIDE RECORDS SUMMARY | 2024-03-31 15:18 | XMS_ITS | Clinical Summary ---
Author Organization [facility] Address [address] [place] [address] Care Team Providers Care Tableau Administrator Name Role Phone Unavailable Primary Care Provider Unavailabl e Source Comments [facility],non-owned Affiliates and Associated Physician Practices is amultiple site organization consisting of ambulatory clinics and hospital sitesin [place], [place], [place] and [place]. This disclosure is being madepursuant to the Care Everywhere program and may not contain all information available regarding this patient. Last updated 17.[facility] Allergies No known active allergies Medications Be [...]
--- OUTSIDE RECORDS SUMMARY | 2024-03-31 15:18 | XMS_ITS | Clinical Summary ---
Author Organization [facility] Address [address] [place] [address] Care Team Providers Care Job Training Specialist Name Role Phone No, Physician Primary Care Provider Allergies No known active allergies Medications No [...] patient's age to complete this topic [place] [address] [place] [address] Care Teams Job Training Specialist Relationship Specialty Start Date End Date No, Physician PCP - General 10/12/21
--- OUTSIDE RECORDS SUMMARY | 2024-03-31 15:18 | XMS_ITS | Referral Summary ---
Author Organization [facility] Address [address] [facility] [place] [address] Care Team Providers Care Greige Goods Examiner Name Role Phone Unavailable Primary Care Provider Unavailabl e Source Comments [facility],non-owned Affiliates and Associated Physician Practices is amultiple site organization consisting of ambulatory clinics and hospital sitesin [place], [place], [place] and [place]. This disclosure is being madepursuant to the Care Everywhere program and may not contain all information available regarding this patient. Last updated 17.[facility] Allergies No known active allergies Medications Be [...]
--- OUTSIDE RECORDS SUMMARY | 2024-03-31 15:18 | XMS_ITS | Referral Summary ---
Author Organization [facility] Address [address] [place] [id number] Care Team Providers Care Intelligence Director Name Role Phone No, Physician Primary Care Provider [phone] Allergies No known active allergies Medications No [...] Plan of Treatment Not on file [place] [address] [place] [address] Care Teams Intelligence Director Relationship Specialty Start Date End Date No, Physician PCP - General 10/12/21
--- NOTE | 2024-03-31 15:43 | ED.URI ---
HPI - URI/Sore Throat General Chief Complaint: Upper Respiratory Infection Stated Complaint: cough Time Seen by Provider: 03/31/24 15:43 Source: patient, RN notes reviewed and old records reviewed Mode of arrival: ambulatory Limitations: no limitations History of Present Illness HPI Narrative: patient treated for pharyngitis last week with amoxicillin, steroids, benzonatate, presents today with complaints continued cough. Reports that cough has been present throughout the course his illness, which is roughly 1 week long. He denies any fever, chills, sweats. Does report that he had a fever last week, but this has since resolved. He states that he has been taking his medications as prescribed. Says that he believes they are making him nauseated. Patient is not in any distress today, his whole family is present, all are being seen today Related Data Allergies Allergy/AdvReac Type Severity Reaction Status Date / Time pantoprazole AdvReac Mild Gastrointestinal Verified 03/31/24 15:55 Upset Review of Systems Review of Systems: All systems reviewed & are unremarkable except as noted in HPI and below Constitutional: Constitutional: Reports no additional constitutional complaints ENT: Reports system reviewed and no additional complaints, except as documented Cardiovascular: Cardiovascular: Reports no additional cardiovascular complaints Respiratory: Respiratory: Reports no additional respiratory complaints Gastrointestinal: Gastrointestinal: Reports as per HPI, Reports no additional gastrointestinal complaints and Reports nausea PMFSH Comments At the time of my signature, I reviewed and agree with the nursing past medical, surgical, social, and family history. There is no relevant family history pertinent to the patient complaint. Exam Const: General: cooperative, no acute distress, alert and awake Orientation/consciousness: oriented to person, oriented to place and oriented to time HENMT: Head: normal to inspection Ears: TM's normal bilaterally Mouth: Yes moist mucous membranes Resp: Effort & Inspection: normal respiratory effort and able to speak in complete sentences Auscultation: clear to auscultation bilaterally, no crackles, no rales, no rhonchi and no wheezes Cardio: Palpation: normal PMI Rate: regular rate Rhythm: regular rhythm Heart sounds: S1 normal heart sound present and S2 normal heart sound present GI: Auscultation: normoactive bowel sounds Neuro: General: oriented to person, oriented to place and oriented to time Cranial nerves: Yes CN's II-XII intact bilaterally Psych: Appearance: grossly normal Thought process: Normal thought process present Insight: Good insight present (Psych) Judgement: Good judgement present (Psych) Course Course Level of Care: Express Care Visit Vital Signs Vital signs: Vital Signs Temperature 98.2 F 03/31/24 14:45 Pulse Rate 69 03/31/24 14:45 Respiratory Rate 18 03/31/24 14:45 Blood Pressure 140/87 03/31/24 14:45 Pulse Oximetry 100 03/31/24 14:45 Oxygen Delivery Room Air 03/31/24 14:45 Temperature 98.2 F 03/31/24 14:45 Pulse Rate 69 03/31/24 14:45 Respiratory Rate 18 03/31/24 14:45 Blood Pressure 140/87 03/31/24 14:45 Pulse Oximetry 100 03/31/24 14:45 Oxygen Delivery Room Air 03/31/24 14:45 Reviewed MDM - URI/Sore Throat MDM Narrative Medical decision making narrative: reassuring physical exam. Patient already being treated with multiple medications. Upset stomach could be secondary to use of amoxicillin and/ or steroid medication. Zofran as needed. Patient implore to go to primary care provider, emergency department for new or worse Differential Diagnosis Differential diagnosis: Likely upper respiratory infection, otitis media, viral infection, bronchitis and pharyngitis Medical Records Attestation: I reviewed the patient's medical records. Discharge Plan Discharge Clinical Impression: Nausea Patient Disposition: Home, Self-Care Condition: Stable Instructions: Antibiotic Form, Acute Nausea and Vomiting (ED) Additional Instructions: take medications as prescribed. Follow with primary care provider. Emergency department for new or worse symptoms Patient Language: South Korean Prescriptions: New ondansetron HCl 4 mg tablet 4 mg PO Q6H PRN (Reason: nausea and vomiting) Qty: 10 0RF No Action benzonatate 200 mg capsule 200 mg PO TID PRN (Reason: cough) Qty: 20 0RF amoxicillin 875 mg tablet 875 mg PO Q12H 10 Days Qty: 20 0RF methylprednisolone [Medrol (Jai)] 4 mg tablets,dose pack See Rx Instructions PO .COMPLEX Qty: 21 0RF Rx Instructions: orally per package directions Follow-up/Referrals: PHYSICIAN,SOLAR INSTALLATION SUPERVISOR [Primary Care Provider] - Stand Alone Forms: Work/School Release IP Time of Disposition: 16:35
== END 2024-03-31 16:50 | disposition home or self-care (01) ==
PROVIDERS: Emergency Provider Nurse Practitioner Family
DX: R11.0 Nausea (principal); K21.9 Gastro-esophageal reflux disease without esophagitis; Z86.16 Personal history of COVID-19
CPT/HCPCS: 99213; G0463

== ENCOUNTER 2025-02-12 08:02 | Emergency (ER) | payer BC, SELFPAY ==
--- NOTE | 2025-02-12 08:12 | ED.URI ---
HPI - URI/Sore Throat General Chief Complaint: Upper Respiratory Infection Stated Complaint: UTI/sore throat patient presents to the [facility] with complaints of sore/scratchy throat, hoarse voice, nasal congestion, nasal drainage, headache, dizziness chest congestion, productive cough, and occasional shortness of breath on exertion that began 3-4 days ago. Patient has been using DayQuil with minimal relief of symptoms. Mother ill with similar symptoms. Denies fever, chills, body aches, difficulty swallowing, nausea, vomiting, diarrhea Related Data Allergies Allergy/AdvReac Type Severity Reaction Status Date / Time pantoprazole AdvReac Mild Gastrointestinal Verified 02/12/25 08:15 Upset Review of Systems Constitutional: Constitutional: Reports as per HPI, Denies chills, Reports fatigue, Denies fever(s) and Denies weakness Eyes: Eyes: Reports no additional eye complaints ENT: Reports as per HPI, Denies vertigo, Denies dizziness, Reports nasal congestion and Reports sore throat Cardiovascular: Cardiovascular: Reports no additional cardiovascular complaints Respiratory: Respiratory: Reports as per HPI, Reports chest congestion, Reports cough, Reports dyspnea and Denies wheezing Gastrointestinal: Gastrointestinal: Reports as per HPI, Denies abdominal pain, Denies diarrhea, Denies nausea and Denies vomiting Genitourinary: Genitourinary: Reports no additional male genitourinary complaints Musculoskeletal: Musculoskeletal: Reports as per HPI, Denies back pain and Denies myalgias Integumentary/Breasts: Skin/Breast: Reports as per HPI, Denies erythema and Denies rash Neurologic: Reports as per HPI, Denies vertigo, Denies dizziness, Reports headache(s) and Denies weakness Psychiatric: Psychiatric: Reports no additional psychiatric complaints Endocrine: Endocrine: Reports no additional endocrine complaints Hematologic/Lymphatic: Hematologic/Lymphatic: Reports no additional hematologic/lymphatic complaints Allergic/Immunologic: Allergic/Immunologic: Reports no additional allergic/immunologic complaints Exam Const: General: healthy appearing and no acute distress Nutritional Appearance: well nourished Orientation/consciousness: patient oriented x3 Limitations: no limitations HENMT: Head: normal to inspection Ears: external ears normal and TM's normal bilaterally Face/Nose/Sinus: Normal external nose present, nares abnormal ( minimal erythema no edema) and Nasal discharge present Face and sinus: normal facial exam and sinuses nontender Mouth: Yes Normal oral and palatal mucosa present, Yes lip normal and Yes moist mucous membranes Throat: posterior oropharynx abnormal ( moderate erythema no edema or exudate) Neck: Neck: normal visual inspection and no lymphadenopathy Resp: Effort & Inspection: normal respiratory effort Auscultation: clear to auscultation bilaterally Other: percussion normal. Dry cough noted Cardio: Rate: regular rate Rhythm: regular rhythm Skin: General skin exam: normal color Rashes: no rashes Wounds: no wounds Neuro: General: patient oriented x3 Speech: normal speech Gait exam (Neuro): Normal gait present Extrem: General: normal to inspection and no clubbing, cyanosis or edema Psych: Mental Status: mental status grossly normal Affect: normal affect Attitude: cooperative Course Course Level of Care: Express Care Visit [facility] Narrative Medical decision making narrative: Flu, COVID, strep negative. The patient was evaluated by myself in the express care. History is obtained from patient who is an independent historian and physical exam was performed. Available medical records were reviewed at this time. Exam findings show no acute concerns or changes; patient is non-toxic appearing and is in no distress. Patient is appropriate for outpatient treatment and follow-up. I have evaluated and discussed social determinants of health with the patient that could potentially impact subsequent diagnosis and treatment plans. Differential diagnosis and treatment plan were discussed with the patient. Patient agrees with discussion and after shared medical decision making agrees with plan of care. All questions were answered to the patient's satisfaction. Differential Diagnosis Differential Diagnosis: Sinusitis, COVID, flu, pharyngitis, upper respiratory infection Medical Records I have reviewed the following patient records and this information was taken into consideration when formulating the assessment and plan.: previous labs, previous ER visits and previous clinic visits Lab Data [facility] Lab Attestation statement: I personally reviewed the patient's lab results. Lab results narrative: flu, COVID, strep negative will send culture Discharge Plan Discharge Clinical Impression: Upper respiratory infection Patient Disposition: Home Condition: Stable Instructions: Antibiotic Form, Acute Bronchitis (ED), Cold Symptoms (ED) Additional Instructions: Viral illness may last between 7-12days; antibiotic is NOT recommended at this time. Recommend antihistamine such as Benadryl at night time and Claritin/Zyrtec/Claudia during the day. Also using steroid nasal spray like Flonase can help with symptoms and congestion. Using sudafed for significant congestion will also give some relief. Cough syrup may cause drowsiness; avoid driving or take it at night time. Use inhaler as needed for cough, wheezing, shortness of breath or chest tightness. Also, recommend symptomatic treatment includes: rest, fluids, increase humidity of the air at home. Recommend Acetaminophen or nonsteroidal anti-inflammatory agents(NSAIDs) as directed in the bottle to reduce fever and/pain/headache. Avoid smoking/second-hand smoke. Limit visits to areas with large crowds. Frequent hand washing or hand compressor stations superintendent is one of the best ways to prevent spread of infection. Please schedule a followup visit with your personal physician for further evaluation and treatment within 3-5days. Including recheck and discussion of your blood pressure. If your symptoms persist, change or worsen significantly before you can contact your personal physician then please, without delay, go to the emergency department for further evaluation. Patient Language: Egyptian Prescriptions: New benzonatate 200 mg capsule 200 mg PO TID PRN (Reason: cough) Qty: 30 0RF methylprednisolone [Medrol (Jai)] 4 mg tablets,dose pack See Rx Instructions .ROUTE .COMPLEX Qty: 21 0RF Rx Instructions: for 6 days albuterol sulfate [Ventolin HFA] 90 mcg/actuation HFA aerosol inhaler 2 puff inhalation QID PRN (Reason: shortness of breath or wheezing) Qty: 8.5 0RF Follow-up/Referrals: UNKNOWN,DOCTOR [Primary Care Provider] Stand Alone Forms: Work/School Release IP Time of Disposition: 08:36
[2025-02-12 08:18] VITALS: BP 129/78; PULSE 81; RESP 20; TEMP 36.6; O2SAT 99
[2025-02-12 08:25] LABS: EDSTREPNEGPOS1 Negative (Negative)
[2025-02-12 08:33] LABS: EDCOVIDSCREEN Negative (Negative); EDINFLUASCREEN Negative (Negative); EDINFLUBSCREEN Negative (Negative)
== END 2025-02-12 08:40 | disposition home or self-care (01) ==
PROVIDERS: Emergency Provider Nurse Practitioner Family
DX: J06.9 Acute upper respiratory infection, unspecified (principal); Z20.822 Contact with and (suspected) exposure to COVID-19
CPT/HCPCS: 87081; 87426; 87804; 87880; 99213; G0463